=== PATIENT | female | born 1995 | race Caucasian/White ===

== ENCOUNTER 2021-11-13 08:36 | Inpatient (IN) | payer OTHER, SELFPAY ==
--- NOTE | ~2021-11-13 | FL_ITS ---
EXAMINATION: XR FLUOROSCOPY WITH IMAGES CLINICAL INFORMATION: Cystoscopy and stent. COMPARISON: CT scan of the abdomen and pelvis October 2021. TECHNIQUE: Fluoroscopy performed by Dr. Adair. Fluoroscopy time: 132 seconds DAP: 35.04 mGy-cm2 Images: 3 FINDINGS: Three images performed in the operating room and submitted for review. These demonstrate wire placement overlying the left collecting system with contrast injected noted along portions of the proximal ureter and proximal collecting system. FL/FL guidance in OR IMPRESSION: As above.
--- NOTE | ~2021-11-13 | CT_ITS ---
EXAMINATION: CT ABDOMEN AND PELVIS WITH CONTRAST CLINICAL INFORMATION: Right flank and lower quadrant pain COMPARISON: None TECHNIQUE: Multidetector volumetric images were obtained from the superior aspect of the liver through the pubic symphysis following administration 85 mL of Omnipaque 350 intravenous contrast. Sagittal and coronal reformatted images were obtained on the technologist's workstation. Oral contrast: Yes This CT examination was performed using dose optimization techniques as appropriate, variously including the following: *Automated exposure control *Adjustment of mA and/or kV according to patient size (this includes techniques or standardized protocols for targeted exams where dose is matched to indication/reason for exam; i.e. extremities or head) *Use of iterative reconstruction technique DLP: 493 mGy-cm FINDINGS: LUNG BASES: There is a small right pleural effusion. LIVER, GALLBLADDER, AND BILIARY TREE: The liver is normal in size, shape, and attenuation. No focal hepatic lesion or biliary ductal dilatation is present. The gallbladder is unremarkable with no evidence of radiopaque gallstones, gallbladder wall thickening, or obvious pericholecystic inflammatory changes. PANCREAS: Unremarkable. SPLEEN: Unremarkable. ADRENAL GLANDS: Unremarkable. KIDNEYS AND URETERS: There is right hydronephrosis from a 5 x 7 mm right proximal ureteral stone. There is cortical thinning or scarring in the lower pole of the right kidney. There is significant right perinephric fluid and fluid along the right posterior pararenal fascia. This may be related to obstruction and backflow of urine. Differential would include infection. Clinical correlation is recommended. There is a 5 mm stone in the lower pole of the left kidney. The left kidney is otherwise normal. BLADDER: Unremarkable. GASTROINTESTINAL TRACT: The small and large bowel are unremarkable. The appendix is unremarkable. ABDOMINAL WALL: Small umbilical hernia containing fat. LYMPH NODES: Normal. VASCULAR: Unremarkable. PELVIC VISCERA: Unremarkable. OSSEOUS STRUCTURES: Unremarkable. CT/CT abdomen pelvis w con IMPRESSION: Severe right hydronephrosis from a 5 x 7 mm right proximal ureteral stone. Significant right perinephric fluid and fluid along the right posterior pararenal fascia. This may be secondary to obstruction and backflow of urine. Differential would include infection. Clinical correlation recommended. 5 mm left lower pole renal stone. Small right pleural effusion. Fleischner guidelines were followed.
--- NOTE | ~2021-11-13 | XR_ITS ---
EXAMINATION: XR CHEST CLINICAL INFORMATION: Chest pain COMPARISON: None TECHNIQUE: 2 views of the chest were obtained. FINDINGS: No significant abnormality is noted involving the heart, lungs, mediastinum, bony thorax or soft tissues. XR/XR chest 2V IMPRESSION: Unremarkable examination.
--- NOTE | ~2021-11-13 | US_ITS ---
EXAMINATION: US RETROPERITONEAL LIMITED (RENAL ONLY) CLINICAL INFORMATION: Followup hydronephrosis. COMPARISON: CT scan of 11/13/2021. TECHNIQUE: Ultrasound evaluation of the kidneys. FINDINGS: RIGHT KIDNEY: 11.0 x 5.7 x 6.2 cm (SAG x AP x TRV). There has been marked improvement of previously noted hydronephrosis. There are regions of cortical thinning within the lower pole. Within the upper pole, there is a complex ill-defined mass measuring 2.5 x 2.4 x 3.3 cm in size in the region where previous cyst had been seen. LEFT KIDNEY: 10.4 x 6.0 x 5.4 cm (SAG x AP x TRV). There is mild fullness of the upper collecting system. Renal cortical thickness is normal. Within the lower pole, there is noted to be a nonobstructive 8 x 5 x 9 mm calculus. No suspicious mass identified. US/US renal BI IMPRESSION: Resolution of right upper collecting system marked hydronephrosis. Appearance of complex cyst upper pole of the right kidney. 9 mm left renal calculus which is nonobstructive.
[2021-11-13 08:40] VITALS: BP 131/49; PULSE 112; RESP 20; TEMP 37.1; O2SAT 99; BMI 31.4
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
--- NOTE | 2021-11-13 09:15 | PC.NURSE ---
Pt comes in from home with complaints of R flank pain with N/V since yesterday, denies urinary s/s at this time. States she is dehydrated and needs IV fluids. Pt is A&Ox4, LCA, NSR, abd soft, TTP in R quadrants, +BS x 4. Urine obtained and sent, awaiting MD correa, call coronado within reach. Will continue to monitor.
--- NOTE | 2021-11-13 09:28 | ECG_ITS ---
Test Reason : CP Blood Pressure : / mmHG Vent. Rate : 108 BPM Atrial Rate : 108 BPM P-R Int : 148 ms QRS Dur : 064 ms QT Int : 310 ms P-R-T Axes : 034 040 040 degrees QTc Int : 415 ms Sinus tachycardia Otherwise normal ECG No previous ECGs available Referred By: Netta Mccain Electronically Signed By:FOUZIA LAYTON MD
[2021-11-13 09:30] LABS: Appearance Urine HAZY; Color Urine YELLOW; Glucose Urine UA NEG (NEG); Leukocyte Esterase Urine 1+ (NEG); Nitrite Urine NEG (NEG); Specific Gravity - Urine >= 1.030 (1.005-1.025); UACC Culture Trigger YES; Urine Blood 3+ (NEG); Urine Ketones 40 MG/DL (NEG); Urine Protein 2+ MG/DL (NEG-TRACE)
[2021-11-13 09:31] LABS: UPreg QC Valid YES; Urine Pregnancy NEGATIVE (NEGATIVE)
[2021-11-13 09:43] LABS: Squamous Epithelial Cell Urine 3+ /LPF
[2021-11-13 09:44] LABS: Bacteria Urine 2+ /LPF; Mucus Urine 3+ /LPF
[2021-11-13] MEDS: ondansetron HCL 4 MG/2 ML VIAL IVPUSH (09:51)
[2021-11-13] MEDS: Morphine Sulfate 4 MG/ML CARTRIDGE IVPUSH ×2 (09:51→22:04)
[2021-11-13] MEDS: 0.9 % Sodium Chloride 1,000 ML 999 ML IV ×2 (09:52→12:05)
[2021-11-13 10:00] VITALS: BP 102/48; PULSE 101; RESP 16; O2SAT 100
[2021-11-13 10:00] LABS: Basophils Percent Auto 0.1 % (0-2); Hematocrit 40.5 % (37.0-47.0); Hemoglobin 12.9 g/dl (12.0-16.0); Imm Gran Abs Auto 0.12 X10*3/uL (0.00-0.03); Imm Gran Pct Auto 0.5 % (0.0-0.4); Lymphocytes Percent Auto 4.5 % (20-40); MANUAL DIFF FLAG SCAN; Mean Corpuscular HGB Conc 31.9 g/dl (31.0-35.0); Mean Corpuscular Hemoglobin 26.4 pg (27.0-33.0); Mean Corpuscular Volume 82.8 fL (80.0-98.0); Mean Platelet Volume 11.8 fL (9.4-12.3); Monocytes Absolute Auto 0.7 X10*3/uL (0.1-1.2); Monocytes Percent Auto 3.2 % (2-11); Neutrophils Absolute Auto 20.6 x10*3/uL (2.0-8.3); Neutrophils Percent Auto 91.7 % (45-73); Platelet Count 195 X10*3/uL (160-400); Red Blood Count 4.89 X10*6/uL (4.20-5.50); Red Cell Distribution Width 13.7 % (11.0-16.0); SCAN SMEAR FLAG 1; White Blood Count 22.5 X10*3/uL (4.8-10.8)
[2021-11-13 10:17] LABS: Alanine Aminotransferase 25 U/L (0-31); Alkaline Phosphatase 64 U/L (39-117); Anion Gap 14 (12-20); Aspartate Amino Transferase 25 U/L (5-31); Bilirubin Total 0.8 mg/dL (0.0-1.0); Blood Urea Nitrogen 14 mg/dL (9-16); Calcium 8.9 mg/dL (8.4-10.2); Carbon Dioxide 23 mmol/L (22-29); Chloride 101 mmol/L (96-108); Creatinine Clr Calc Pharmacy 52.4; Estimated Glomerular Filt Rate 51; Glucose Random 128 mg/dL (60-115); Lipase 7 U/L (8-78); Potassium 4.1 mmol/L (3.3-5.1); Sodium 134 mmol/L (135-145); Total Protein 7.2 g/dL (6.5-8.0)
[2021-11-13 10:23] LABS: Troponin-I High Sensitivity < 3.5 ng/L (<3.5-17.0)
[2021-11-13 10:24] LABS: COVID-19 Test Negative (Negative); IDNOW Serial# 16C4AD1C
[2021-11-13 10:31] LABS: SLIDE REVIEW VERIFIED
[2021-11-13] MEDS: Ketorolac Tromethamine 30 MG/ML VIAL IVPUSH (10:42)
[2021-11-13] MEDS: iohexoL 350 MG/ML 100 ML INFUS..BTL IV (11:30)
[2021-11-13 12:00] VITALS: BP 109/68; PULSE 103; RESP 16; O2SAT 99
[2021-11-13] MEDS: Acetaminophen 325 MG TABLET 975 MG PO (12:03)
[2021-11-13] MEDS: cefTRIAXone sodium 2 GM in 0.9 % Sodium Chloride 50 ML IV (12:54)
[2021-11-13 13:24] LABS: Lactic Acid 1.2 mmol/L (0.5-2.0)
--- NOTE | 2021-11-13 14:13 | PM.IMHP ---
History of Present Illness Date of Service: 11/13/21 Chief Complaint: right flank pain 26-year-old female presents with what she describes as 3 days of intermittent worsening right flank pain. She states initially the pain was intermittent and sharp but has continued to get worse over the last 3 days. She states yesterday afternoon last night the pain was accompanied by waves of nausea and vomiting. She subjectively complains of chills. Review of Systems Review of Systems: Denies chest pain Denies shortness of breath Denies diarrhea; admits to nausea vomiting Admits to subjective fevers Denies dysuric symptoms PMFSH Medical History No known health problems Social History Advance Directives: No Advance Directives Information Provided: No Patient : No Meds Allergies Allergy/AdvReac Type Severity Reaction Status Date / Time No Known Allergies Allergy Unverified 04/09/20 16:33 [No Known Allergies*] Active Medications: Current Medications Acetaminophen (Acetaminophen 325 Mg Tablet) 650 mg PO Q6H PRN PRN Reason: Pain, Mild (Pain Scale 1-3) Sodium Chloride (Ns) 1,000 mls @ 100 mls/hr IVCONT .Q10H GIDEON Piperacillin Sod/Tazobactam (Sod 4.5 gm/ Sodium Chloride) 100 mls @ 200 mls/hr IV Q6H GIDEON Morphine Sulfate (Morphine Sulfate 4 Mg/Ml Cartridge) 4 mg IVPUSH Q4H PRN; Protocol PRN Reason: Pain, Severe (Pain Scale 7-10) Oxycodone HCl (Oxycodone Hcl Immed Release 5 Mg Tablet) 5 mg PO Q4H PRN PRN Reason: Pain, Moderate (Pain Scale 4-6 Pharmacy Consult (Consult Rx Perform Med Rec) 1 each MISCELLANE ONCE PRN PRN Reason: Consult order Sodium Chloride (0.9 % Sodium Chloride Flush 3 Ml Syringe) 3 ml IVFLUSH QSHIFT GIDEON Home Medications Medication Instructions Recorded Confirmed Last Taken Type No Known Home Meds 11/13/21 11/13/21 Unknown History Physical Exam Vital Signs and Narrative: Vital Signs: Last Vital Signs Temp 98.7 F 11/13/21 08:40 Pulse 103 H 11/13/21 12:00 Resp 16 11/13/21 12:00 BP 109/68 11/13/21 12:00 Pulse Ox 99 11/13/21 12:00 BMI result Body Mass Index 31.4 Const: Other: Awake alert oriented x3 no acute distress Resp: Other: Clear to auscultation bilaterally no rales rhonchi wheezes Cardio: Other: No S4; positive S1-S2; no S3 murmurs rubs or gallops GI: Other: Soft nontender nondistended with normoactive bowel sounds Back/Spine/Pelvis: Other: Right CVA tenderness Neuro: Other: Cranial nerves 2-12 were grossly intact as tested. Motor is 5/5 bilaterally. Sensations intact. Cognition appropriate Extrem: Other: No edema bilaterally Results Labs CBC and Chem 7: 11/13/21 09:50 11/13/21 09:50 Labs: Laboratory Results - last 24 hr 11/13/21 11/13/21 11/13/21 09:10 09:10 09:50 MCV 82.8 MCH 26.4 L MCHC 31.9 RDW 13.7 Plt Count 195 MPV 11.8 Immature Gran % (Auto) 0.5 H Neut % (Auto) 91.7 H Lymph % (Auto) 4.5 L [place] % (Auto) 3.2 Eos % (Auto) 0.0 Baso % (Auto) 0.1 Lymph # (Auto) 1.0 L [place] # (Auto) 0.7 Eos # (Auto) 0.0 Baso # (Auto) 0.0 Abs Immat Gran (auto) 0.12 H Absolute Neuts (auto) 20.6 H Absolute Nucleated RBC 0.000 Nucleated RBC % (auto) 0.0 Smear Tech's Comments VERIFIED Anion Gap Estim Creat Clear Calc Estimated GFR Random Glucose Lactic Acid Calcium Total Bilirubin AST ALT Alkaline Phosphatase Troponin I High Sens Total Protein Albumin Lipase Urine Color YELLOW Urine Appearance HAZY Urine pH 6.0 Ur Specific [place] >= 1.030 H Urine Protein 2+ H Urine Glucose (UA) NEG Urine Ketones 40 Urine Blood 3+ H Urine Nitrite NEG Ur Leukocyte Esterase 1+ H Urine RBC 5-9 H Urine WBC 15-29 H Ur Squamous Epith Cells 3+ Urine Bacteria 2+ Urine Mucus 3+ Urine Test NEGATIVE COVID-19 ([facility]US) COVID-19 Clin Com 11/13/21 11/13/21 11/13/21 09:50 09:50 09:50 MCV MCH MCHC RDW Plt Count MPV Immature Gran % (Auto) Neut % (Auto) Lymph % (Auto) [place] % (Auto) Eos % (Auto) Baso % (Auto) Lymph # (Auto) [place] # (Auto) Eos # (Auto) Baso # (Auto) Abs Immat Gran (auto) Absolute Neuts (auto) Absolute Nucleated RBC Nucleated RBC % (auto) Smear Tech's Comments Anion Gap 14 Estim Creat Clear Calc 52.4 Estimated GFR 51 Random Glucose 128 H Lactic Acid Calcium 8.9 Total Bilirubin 0.8 AST 25 ALT 25 Alkaline Phosphatase 64 Troponin I High Sens < 3.5 Total Protein 7.2 Albumin 4.0 Lipase 7 L Urine Color Urine Appearance Urine pH Ur Specific [place] Urine Protein Urine Glucose (UA) Urine Ketones Urine Blood Urine Nitrite Ur Leukocyte Esterase Urine RBC Urine WBC Ur Squamous Epith Cells Urine Bacteria Urine Mucus Urine Test COVID-19 ([facility]ESUS) Negative COVID-19 Clin Com See Note 11/13/21 12:48 MCV MCH MCHC RDW Plt Count MPV Immature Gran % (Auto) Neut % (Auto) Lymph % (Auto) [place] % (Auto) Eos % (Auto) Baso % (Auto) Lymph # (Auto) [place] # (Auto) Eos # (Auto) Baso # (Auto) Abs Immat Gran (auto) Absolute Neuts (auto) Absolute Nucleated RBC Nucleated RBC % (auto) Smear Tech's Comments Anion Gap Estim Creat Clear Calc Estimated GFR Random Glucose Lactic Acid 1.2 Calcium Total Bilirubin AST ALT Alkaline Phosphatase Troponin I High Sens Total Protein Albumin Lipase Urine Color Urine Appearance Urine pH Ur Specific [place] Urine Protein Urine Glucose (UA) Urine Ketones Urine Blood Urine Nitrite Ur Leukocyte Esterase Urine RBC Urine WBC Ur Squamous Epith Cells Urine Bacteria Urine Mucus Urine Test COVID-19 ([facility]ESUS) COVID-19 Clin Com Imaging Radiologist's Impressions: Impressions Chest X-Ray 11/13/21 10:35 IMPRESSION: Unremarkable examination. Abdomen/Pelvis CT 11/13/21 11:34 IMPRESSION: Severe right hydronephrosis from a 5 x 7 mm right proximal ureteral stone. Significant right perinephric fluid and fluid along the right posterior pararenal fascia. This may be secondary to obstruction and backflow of urine. Differential would include infection. Clinical correlation recommended. 5 mm left lower pole renal stone. Small right pleural effusion. Fleischner guidelines were followed. Assessment and Plan (1) Urinary tract obstruction due to kidney stone: Status: Acute (2) Pyelonephritis: Status: Acute Plan 26-year-old female with 3 days of right flank pain accompanied by nausea and vomiting subjective fevers. She denies dysuric symptoms. In the emergency room, CT scan demonstrates severe right hydronephrosis from a 5 x 7 mm right proximal ureteral stone. There is significant right hoang nephric fluid and stranding. Case was discussed by Urology who will see in the a.m.. 1. Right hydronephrosis secondary to right proximal ureteral stone -admit GM after; IV fluids -pain management with morphine and oxycodone as needed -empiric Zosyn pending cultures -urology will see in a.m. for likely stent. .. Will keep NPO after midnight Emilie anaya Full code Patient will require 1-2 midnights going forward for treatment of likely pyelonephritis and ureteral stenting by Urology. This cannot be accomplished at a less acute facility Quality Stroke Does the patient have a stroke diagnosis?: No VTE Prior VTE?: No VTE Risk Level:: Medical - moderate - high VTE Device Contraindication: N/A - Device Ordered VTE Drug Contraindication: Treatment Not Indicated
--- NOTE | 2021-11-13 14:17 | PHA.MEDREC ---
Pharmacy Consult ? Medication Reconciliation Pharmacy has completed the medication reconciliation. spoke with patient in the ED.
[2021-11-13] MEDS: 0.9 % Sodium Chloride 1,000 ML 100 ML IVCONT (14:34)
[2021-11-13] MEDS: Piperacillin Sodium/Tazobactam 4.5 GM in 0.9 % Sodium Chloride 100 ML IV ×2 (14:34→19:49)
[2021-11-13 17:31] VITALS: BP 99/60; PULSE 79; RESP 18; TEMP 36.7; O2SAT 100
[2021-11-13 17:43] VITALS: BMI 31.6
--- NOTE | 2021-11-13 18:04 | PC.NURSE ---
PATIENT REPORTED SPOTTING OF BLOOD WITH URINATION. NOTIFIED PRIMARY RN.
[2021-11-14] VITALS (13 sets, daily range): BP systolic 90–131; BP diastolic 43–84; PULSE 73–100; RESP 15–20; TEMP 36.2–37.4; O2SAT 96–100
[2021-11-14] MEDS: Acetaminophen 325 MG TABLET 650 MG PO (00:46)
[2021-11-14] MEDS: oxyCODONE HCl Immed Release 5 MG TABLET PO (00:46)
[2021-11-14] MEDS: 0.9 % Sodium Chloride 1,000 ML 100 ML IVCONT ×4 (00:46→22:48)
[2021-11-14] MEDS: Piperacillin Sodium/Tazobactam 4.5 GM in 0.9 % Sodium Chloride 100 ML IV ×4 (00:47→19:46)
--- NOTE | 2021-11-14 07:48 | P.BOP_ITS ---
Brief Operative Note Date of Service: 11/14/21 Pre-op diagnosis: right ureteral stone with hydro Post-op diagnosis: same Procedure: cystoscopy, right rerograde, ureterocopy, stent pt taken to operating room, time out done. pt underwent cystoscopy with right retrograde showing proximal obstructing ureteral stone. stone was knocked back into renal pelvis, retrogrtade showed significnt narrowing , and torturiuos ureter, attempt at dilation meet significant resistance, since it took everal attempts tp get gluide wire in renal pevis opted to stent pt allow for dilation of ureter and resolution of infection, stent was then placed with good position on floroscopy and cystoscopy pt tolerated the procedure well , there were no complications Implants: double j stent 6 fr x 24 cm Surgeon: Leonardo Adair III, MD Anesthesia: GLMA Was an Emergency Services Professional used for this Procedure?: No Estimated blood loss (mL): 0 Condition: stable Disposition: PACU
--- NOTE | 2021-11-14 08:07 | P.CONAN_ITS ---
[facility] Active Problems Active Problems: All Active Problems (Updated 11/13/21 @ 14:17 by Bob Palomares DO) Pyelonephritis (Acute) Urinary tract obstruction due to kidney stone (Acute) UTI (urinary tract infection) (Acute) Past Medical History Medical History No known health problems Family History Family history of problems with anesthesia: No Surgical History History of Problems with Anesthesia: No Social History Social History Household Members: Children Housing: Apartment Do you presently have visiting nurse or other home services: No Patient Tobacco Use Status: Never used Tobacco Meds Allergies Allergy/AdvReac Type Severity Reaction Status Date / Time No Known Allergies Allergy Unverified 04/09/20 16:33 [No Known Allergies*] Active Medications: Current Medications Acetaminophen (Acetaminophen 325 Mg Tablet) 650 mg PO Q6H PRN PRN Reason: Pain, Mild (Pain Scale 1-3) Last Admin: 11/14/21 00:46 Dose: 650 mg Documented by: Sodium Chloride (Ns) 1,000 mls @ 100 mls/hr IVCONT .Q10H [facility] Last Admin: 11/14/21 00:46 Dose: 100 mls/hr Documented by: Piperacillin Sod/Tazobactam (Sod 4.5 gm/ Sodium Chloride) 100 mls @ 200 mls/hr IV Q6H [facility] Last Admin: 11/14/21 07:35 Dose: 200 mls/hr Documented by: Morphine Sulfate (Morphine Sulfate 4 Mg/Ml Cartridge) 4 mg IVPUSH Q4H PRN; Protocol PRN Reason: Pain, Severe (Pain Scale 7-10) Last Admin: 11/13/21 22:04 Dose: 4 mg Documented by: Oxycodone HCl (Oxycodone Hcl Immed Release 5 Mg Tablet) 5 mg PO Q4H PRN PRN Reason: Pain, Moderate (Pain Scale 4-6 Last Admin: 11/14/21 00:46 Dose: 5 mg Documented by: Pharmacy Consult (Consult Rx Perform Med Rec) 1 each MISCELLANE ONCE PRN PRN Reason: Consult order Sodium Chloride (0.9 % Sodium Chloride Flush 3 Ml Syringe) 3 ml IVFLUSH QSHIFT [facility] Last Admin: 11/14/21 07:32 Dose: Not Given Documented by: Home Medications Medication Instructions Recorded Confirmed Last Taken Type No Known Home Meds 11/13/21 11/13/21 Unknown History Exam Exam Date and Time: November 14, 2021 08 Height,Weight and Vital Signs: Height 4 ft 9 in Weight 66.2 kg Last Vital Signs Temp 98.3 F 11/14/21 03:30 Pulse 85 11/14/21 03:30 Resp 18 11/14/21 03:30 BP 91/50 L 11/14/21 03:30 Pulse Ox 98 11/14/21 03:30 Pertinent Lab Results Pertinent Lab Results: Laboratory Tests 11/13/21 11/13/21 11/13/21 09:10 09:10 09:50 WBC 22.5 H RBC 4.89 Hgb 12.9 Hct 40.5 MCV 82.8 MCH 26.4 L MCHC 31.9 RDW 13.7 Plt Count 195 MPV 11.8 Immature Gran % (Auto) 0.5 H Neut % (Auto) 91.7 H Lymph % (Auto) 4.5 L [place] % (Auto) 3.2 Eos % (Auto) 0.0 Baso % (Auto) 0.1 Lymph # (Auto) 1.0 L [place] # (Auto) 0.7 Eos # (Auto) 0.0 Baso # (Auto) 0.0 Abs Immat Gran (auto) 0.12 H Absolute Neuts (auto) 20.6 H Absolute Nucleated RBC 0.000 Nucleated RBC % (auto) 0.0 Smear Tech's Comments VERIFIED Sodium Potassium Chloride Carbon Dioxide Anion Gap BUN Creatinine Estim Creat Clear Calc Estimated GFR Random Glucose Lactic Acid Calcium Total Bilirubin AST ALT Alkaline Phosphatase Troponin I High Sens Total Protein Albumin Lipase Urine Color YELLOW Urine Appearance HAZY Urine pH 6.0 Ur Specific [place] >= 1.030 H Urine Protein 2+ H Urine Glucose (UA) NEG Urine Ketones 40 Urine Blood 3+ H Urine Nitrite NEG Ur Leukocyte Esterase 1+ H Urine RBC 5-9 H Urine WBC 15-29 H Ur Squamous Epith Cells 3+ Urine Bacteria 2+ Urine Mucus 3+ Urine Test NEGATIVE COVID-19 (JESUS) COVID-19 Clin Com 11/13/21 11/13/21 11/13/21 09:50 09:50 09:50 WBC RBC Hgb Hct MCV MCH MCHC RDW Plt Count MPV Immature Gran % (Auto) Neut % (Auto) Lymph % (Auto) [place] % (Auto) Eos % (Auto) Baso % (Auto) Lymph # (Auto) [place] # (Auto) Eos # (Auto) Baso # (Auto) Abs Immat Gran (auto) Absolute Neuts (auto) Absolute Nucleated RBC Nucleated RBC % (auto) Smear Tech's Comments Sodium 134 L Potassium 4.1 Chloride 101 Carbon Dioxide 23 Anion Gap 14 BUN 14 Creatinine 1.27 Estim Creat Clear Calc 52.4 Estimated GFR 51 Random Glucose 128 H Lactic Acid Calcium 8.9 Total Bilirubin 0.8 AST 25 ALT 25 Alkaline Phosphatase 64 Troponin I High Sens < 3.5 Total Protein 7.2 Albumin 4.0 Lipase 7 L Urine Color Urine Appearance Urine pH Ur Specific [place] Urine Protein Urine Glucose (UA) Urine Ketones Urine Blood Urine Nitrite Ur Leukocyte Esterase Urine RBC Urine WBC Ur Squamous Epith Cells Urine Bacteria Urine Mucus Urine Test COVID-19 (JESUS) Negative COVID-19 [employer] Com See Note 11/13/21 12:48 WBC RBC Hgb Hct MCV MCH MCHC RDW Plt Count MPV Immature Gran % (Auto) Neut % (Auto) Lymph % (Auto) [place] % (Auto) Eos % (Auto) Baso % (Auto) Lymph # (Auto) [place] # (Auto) Eos # (Auto) Baso # (Auto) Abs Immat Gran (auto) Absolute Neuts (auto) Absolute Nucleated RBC Nucleated RBC % (auto) Smear Tech's Comments Sodium Potassium Chloride Carbon Dioxide Anion Gap BUN Creatinine Estim Creat Clear Calc Estimated GFR Random Glucose Lactic Acid 1.2 Calcium Total Bilirubin AST ALT Alkaline Phosphatase Troponin I High Sens Total Protein Albumin Lipase Urine Color Urine Appearance Urine pH Ur Specific [place] Urine Protein Urine Glucose (UA) Urine Ketones Urine Blood Urine Nitrite Ur Leukocyte Esterase Urine RBC Urine WBC Ur Squamous Epith Cells Urine Bacteria Urine Mucus Urine Test COVID-19 (JESUS) COVID-19 [employer] Com Airway Mallampati Class: II TM Dist: >3cm Neck ROM: Full Assessment and Plan Assessment Anesthesia Assessment: Anesthesia Plan Discussed and Chart Reviewed Final Anesthetic Review Family History of Problems with Anesthesia: No History of Problems with Anesthesia: No NPO: Yes ASA Class: II and Emergency Final Preanesthetic Review: No Changes in Pt Med Stat, Meds/Allgs Chart Reviewed, Consent Obtained/Reviewed and Anes Risks/Benef Reviewed Patient Risk: Low Procedure Risk: Low Anesthetic Plan Anesthetic Plan: GA Disposition: Standard PACU
[2021-11-14 08:35] LABS: MANUAL DIFF FLAG NO
[2021-11-14 08:37] LABS: Basophils Percent Auto 0.1 % (0-2); Eosinophils Absolute Auto 0.1 X10*3/uL (0.0-0.4); Eosinophils Percent Auto 0.6 % (0-4); Hematocrit 34.1 % (37.0-47.0); Hemoglobin 10.8 g/dl (12.0-16.0); Imm Gran Abs Auto 0.08 X10*3/uL (0.00-0.03); Imm Gran Pct Auto 0.5 % (0.0-0.4); Lymphocytes Percent Auto 12.8 % (20-40); Mean Corpuscular HGB Conc 31.7 g/dl (31.0-35.0); Mean Corpuscular Hemoglobin 26.6 pg (27.0-33.0); Mean Platelet Volume 12.1 fL (9.4-12.3); Monocytes Absolute Auto 0.6 X10*3/uL (0.1-1.2); Monocytes Percent Auto 3.5 % (2-11); Neutrophils Absolute Auto 12.8 x10*3/uL (2.0-8.3); Neutrophils Percent Auto 82.5 % (45-73); Platelet Count 165 X10*3/uL (160-400); Red Blood Count 4.06 X10*6/uL (4.20-5.50); Red Cell Distribution Width 13.6 % (11.0-16.0); White Blood Count 15.6 X10*3/uL (4.8-10.8)
--- NOTE | 2021-11-14 08:51 | MHC.CM.PN ---
Patient lives at home w/two children (young). She does not drive, but rather takes a bus for transportation needs. Patient previously functionally independent. No prior VNA services, etc. Patient presently unavailable; interview conducted w/contact listed in chart (mother, Roxana). Roxana caring for patient's children currently. Upon D/C readiness, transport TBD [facility] [place] transport vs friend to pick pack worker). Patient took lyft to [facility] for admit. CM to follow.
[2021-11-14 09:09] LABS: Alanine Aminotransferase 15 U/L (0-31); Alkaline Phosphatase 54 U/L (39-117); Anion Gap 13 (12-20); Aspartate Amino Transferase 15 U/L (5-31); Bilirubin Total 1.2 mg/dL (0.0-1.0); Blood Urea Nitrogen 13 mg/dL (9-16); Carbon Dioxide 22 mmol/L (22-29); Chloride 107 mmol/L (96-108); Creatinine Clr Calc Pharmacy 84.5; Estimated Glomerular Filt Rate > 60; Glucose Random 80 mg/dL (60-115); Potassium 4.1 mmol/L (3.3-5.1); Sodium 138 mmol/L (135-145)
[2021-11-14 09:43] LABS: Albumin Level 3.1 g/dL (3.5-5.0); Total Protein 5.5 g/dL (6.5-8.0)
--- NOTE | 2021-11-14 10:20 | PC.NURSE ---
late entry. pt had earrings in upon leaving pacu
[2021-11-14] MEDS: Morphine Sulfate 4 MG/ML CARTRIDGE IVPUSH ×2 (10:43→16:59)
--- NOTE | 2021-11-14 14:25 | P.PNIM_ITS ---
Subjective Subjective Date of Service: 11/14/21 Interval History: Underwent stenting of right ureter today without issue. Pain well controlled postoperatively Review of Systems Denies chest pain Denies shortness of breath Denies nausea vomiting diarrhea Denies fever chills Physical Exam Vital Signs: Vital Signs: Last Vital Signs Temp 97.3 F 11/14/21 11:00 Pulse 88 11/14/21 11:00 Resp 17 11/14/21 11:00 BP 110/59 L 11/14/21 11:00 Pulse Ox 96 11/14/21 11:00 BMI result Body Mass Index 31.6 Const: Other: Awake alert oriented x3 no acute distress Resp: Other: Clear to auscultation bilaterally no rales rhonchi wheezes Cardio: Other: No S4; positive S1-S2; no S3 murmurs rubs or gallops GI: Other: Soft nontender nondistended with normoactive bowel sounds Back/Spine/Pelvis: Other: Right CVA tenderness Neuro: Other: Cranial nerves 2-12 were grossly intact as tested. Motor is 5/5 bilaterally. Sensations intact. Cognition appropriate Extrem: Other: No edema bilaterally Objective Data Active Medications Acetaminophen (Acetaminophen 325 Mg Tablet) 650 mg PO Q6H PRN PRN Reason: Pain, Mild (Pain Scale 1-3) Last Admin: 11/14/21 00:46 Dose: 650 mg Documented by: ZEESHAN Fentanyl (Fentanyl Citrate/Pf 100 Mcg/2 Ml Vial) 50 mcg IVPUSH Q5M PRN; Protocol PRN Reason: Pain, Severe (Pain Scale 7-10) Sodium Chloride (Ns) 1,000 mls @ 100 mls/hr IVCONT .Q10H [facility] Last Admin: 11/14/21 14:14 Dose: 100 mls/hr Documented by: ASHLEY Piperacillin Sod/Tazobactam (Sod 4.5 gm/ Sodium Chloride) 100 mls @ 200 mls/hr IV Q6H [facility] Last Admin: 11/14/21 14:13 Dose: 200 mls/hr Documented by: ASHLEY Morphine Sulfate (Morphine Sulfate 4 Mg/Ml Cartridge) 4 mg IVPUSH Q4H PRN; Protocol PRN Reason: Pain, Severe (Pain Scale 7-10) Last Admin: 11/14/21 10:43 Dose: 4 mg Documented by: ASHLEY Ondansetron HCl (Ondansetron Hcl 4 Mg/2 Ml Vial) 4 mg IVPUSH ONCE PRN PRN Reason: Nausea and Vomiting Oxycodone HCl (Oxycodone Hcl Immed Release 5 Mg Tablet) 5 mg PO Q4H PRN PRN Reason: Pain, Moderate (Pain Scale 4-6 Last Admin: 11/14/21 00:46 Dose: 5 mg Documented by: ZEESHAN Oxycodone HCl (Oxycodone Hcl Immed Release 5 Mg Tablet) 5 mg PO ONCE PRN PRN Reason: Pain, Severe (Pain Scale 7-10) Pharmacy Consult (Consult Rx Perform Med Rec) 1 each MISCELLANE ONCE PRN PRN Reason: Consult order Sodium Chloride (0.9 % Sodium Chloride Flush 3 Ml Syringe) 3 ml IVFLUSH QSHIFT [facility] Last Admin: 11/14/21 07:32 Dose: Not Given Documented by: ASHLEY Non-Admin Reason: IV Running Labs CBC & Chem 7: 11/14/21 08:03 11/14/21 08:03 Labs: Laboratory Results - last 24 hr 11/14/21 11/14/21 08:03 08:03 MCV 84.0 MCH 26.6 L MCHC 31.7 RDW 13.6 Plt Count 165 MPV 12.1 Immature Gran % (Auto) 0.5 H Neut % (Auto) 82.5 H Lymph % (Auto) 12.8 L [place] % (Auto) 3.5 Eos % (Auto) 0.6 Baso % (Auto) 0.1 Lymph # (Auto) 2.0 [place] # (Auto) 0.6 Eos # (Auto) 0.1 Baso # (Auto) 0.0 Abs Immat Gran (auto) 0.08 H Absolute Neuts (auto) 12.8 H Absolute Nucleated RBC 0.000 Nucleated RBC % (auto) 0.0 Anion Gap 13 Estim Creat Clear Calc 84.5 Estimated GFR > 60 Random Glucose 80 Calcium 8.0 L D Total Bilirubin 1.2 H AST 15 ALT 15 Alkaline Phosphatase 54 Total Protein 5.5 L D Albumin 3.1 L D Microbiology Microbiology Results: Microbiology 11/13/21 00:00 Urine Culture - Final Urine clean catch - Urine nichols top Assessment and Plan (1) Urinary tract obstruction due to kidney stone: Status: Acute Plan 26-year-old female with 3 days of right flank pain accompanied by nausea and vomiting subjective fevers. She denies dysuric symptoms. In the emergency room, CT scan demonstrates severe right hydronephrosis from a 5 x 7 mm right proximal ureteral stone. There is significant right hoang nephric fluid and stranding. Case was discussed by Urology who will see in the a.m.. 1. Right hydronephrosis secondary to right proximal ureteral stone -right ureteral stenting today. . . Uneventful postop. -pain management with morphine and oxycodone as needed -empiric Zosyn pending cultures -likely DC in a.m. Emilie anaya Full code Patient will require treatment of likely pyelonephritis and to ensure white count is decreasing Quality Stroke Does the patient have a stroke diagnosis?: No VTE Prior VTE?: No VTE Risk Level:: Medical - moderate - high VTE Device Contraindication: N/A - Device Ordered VTE Drug Contraindication: Treatment Not Indicated
[2021-11-15] MEDS: Piperacillin Sodium/Tazobactam 4.5 GM in 0.9 % Sodium Chloride 100 ML IV ×4 (01:44→20:59)
[2021-11-15] MEDS: Acetaminophen 325 MG TABLET 650 MG PO ×2 (01:44→07:45)
[2021-11-15] MEDS: oxyCODONE HCl Immed Release 5 MG TABLET PO ×2 (01:45→07:46)
[2021-11-15 05:37] LABS: MANUAL DIFF FLAG NO
[2021-11-15 05:42] LABS: Basophils Percent Auto 0.1 % (0-2); Eosinophils Percent Auto 0.1 % (0-4); Hemoglobin 10.4 g/dl (12.0-16.0); Imm Gran Abs Auto 0.17 X10*3/uL (0.00-0.03); Imm Gran Pct Auto 1.1 % (0.0-0.4); Lymphocytes Percent Auto 12.1 % (20-40); Mean Corpuscular HGB Conc 31.5 g/dl (31.0-35.0); Mean Corpuscular Hemoglobin 26.2 pg (27.0-33.0); Mean Corpuscular Volume 83.1 fL (80.0-98.0); Mean Platelet Volume 11.8 fL (9.4-12.3); Monocytes Absolute Auto 0.8 X10*3/uL (0.1-1.2); Monocytes Percent Auto 4.9 % (2-11); Neutrophils Absolute Auto 13.2 x10*3/uL (2.0-8.3); Neutrophils Percent Auto 81.7 % (45-73); Platelet Count 206 X10*3/uL (160-400); Red Blood Count 3.97 X10*6/uL (4.20-5.50); Red Cell Distribution Width 13.7 % (11.0-16.0); White Blood Count 16.1 X10*3/uL (4.8-10.8)
[2021-11-15 06:02] LABS: Alanine Aminotransferase 17 U/L (0-31); Alkaline Phosphatase 53 U/L (39-117); Anion Gap 11 (12-20); Aspartate Amino Transferase 17 U/L (5-31); Bilirubin Total 0.7 mg/dL (0.0-1.0); Blood Urea Nitrogen 13 mg/dL (9-16); Carbon Dioxide 22 mmol/L (22-29); Chloride 109 mmol/L (96-108); Estimated Glomerular Filt Rate > 60; Glucose Fasting 118 mg/dL (60-99); Sodium 138 mmol/L (135-145); Total Protein 5.4 g/dL (6.5-8.0)
[2021-11-15 07:30] VITALS: BP 101/46; PULSE 72; RESP 18; TEMP 36.5; O2SAT 98
[2021-11-15] MEDS: 0.9 % Sodium Chloride 1,000 ML 100 ML IVCONT ×2 (07:47→21:50)
[2021-11-15 07:50] VITALS: O2SAT 97
--- NOTE | 2021-11-15 09:08 | P.PNIM_ITS ---
Subjective Subjective Date of Service: 11/15/21 Interval History: Much more discomfort this a.m.; utilizing pain medicine as ordered. White count remains 16,000 Review of Systems Denies chest pain Denies shortness of breath Denies nausea vomiting diarrhea Denies fever chills Physical Exam Vital Signs: Vital Signs: Last Vital Signs Temp 97.7 F 11/15/21 07:30 Pulse 72 11/15/21 07:30 Resp 18 11/15/21 07:30 BP 101/46 L 11/15/21 07:30 Pulse Ox 97 11/15/21 07:50 BMI result Body Mass Index 31.6 Const: Other: Awake alert oriented x3 no acute distress Resp: Other: Clear to auscultation bilaterally no rales rhonchi wheezes Cardio: Other: No S4; positive S1-S2; no S3 murmurs rubs or gallops GI: Other: Soft nontender nondistended with normoactive bowel sounds Back/Spine/Pelvis: Other: Right CVA tenderness Neuro: Other: Cranial nerves 2-12 were grossly intact as tested. Motor is 5/5 bilaterally. Sensations intact. Cognition appropriate Extrem: Other: No edema bilaterally Objective Data Active Medications Acetaminophen (Acetaminophen 325 Mg Tablet) 650 mg PO Q6H PRN PRN Reason: Pain, Mild (Pain Scale 1-3) Last Admin: 11/15/21 07:45 Dose: 650 mg Documented by: ASHLEY Fentanyl (Fentanyl Citrate/Pf 100 Mcg/2 Ml Vial) 50 mcg IVPUSH Q5M PRN; Protocol PRN Reason: Pain, Severe (Pain Scale 7-10) Sodium Chloride (Ns) 1,000 mls @ 100 mls/hr IVCONT .Q10H [facility] Last Admin: 11/15/21 07:47 Dose: 100 mls/hr Documented by: ASHLEY Piperacillin Sod/Tazobactam (Sod 4.5 gm/ Sodium Chloride) 100 mls @ 200 mls/hr IV Q6H [facility] Last Infusion: 11/15/21 08:18 Dose: 0 mls/hr Documented by: ASHLEY Morphine Sulfate (Morphine Sulfate 4 Mg/Ml Cartridge) 4 mg IVPUSH Q4H PRN; Protocol PRN Reason: Pain, Severe (Pain Scale 7-10) Last Admin: 11/14/21 16:59 Dose: 4 mg Documented by: ASHLEY Ondansetron HCl (Ondansetron Hcl 4 Mg/2 Ml Vial) 4 mg IVPUSH ONCE PRN PRN Reason: Nausea and Vomiting Oxycodone HCl (Oxycodone Hcl Immed Release 5 Mg Tablet) 5 mg PO Q4H PRN PRN Reason: Pain, Moderate (Pain Scale 4-6 Last Admin: 11/15/21 07:46 Dose: 5 mg Documented by: ASHLEY Oxycodone HCl (Oxycodone Hcl Immed Release 5 Mg Tablet) 5 mg PO ONCE PRN PRN Reason: Pain, Severe (Pain Scale 7-10) Pharmacy Consult (Consult Rx Perform Med Rec) 1 each MISCELLANE ONCE PRN PRN Reason: Consult order Sodium Chloride (0.9 % Sodium Chloride Flush 3 Ml Syringe) 3 ml IVFLUSH QSHIFT [facility] Last Admin: 11/15/21 07:21 Dose: Not Given Documented by: ASHLEY Non-Admin Reason: IV Running Labs CBC & Chem 7: 11/15/21 05:32 11/15/21 05:32 Labs: Laboratory Results - last 24 hr 11/14/21 11/15/21 11/15/21 08:03 05:32 05:32 MCV 83.1 MCH 26.2 L MCHC 31.5 RDW 13.7 Plt Count 206 MPV 11.8 Immature Gran % (Auto) 1.1 H Neut % (Auto) 81.7 H Lymph % (Auto) 12.1 L [place] % (Auto) 4.9 Eos % (Auto) 0.1 Baso % (Auto) 0.1 Lymph # (Auto) 2.0 [place] # (Auto) 0.8 Eos # (Auto) 0.0 Baso # (Auto) 0.0 Abs Immat Gran (auto) 0.17 H Absolute Neuts (auto) 13.2 H Absolute Nucleated RBC 0.000 Nucleated RBC % (auto) 0.0 Anion Gap 13 11 L Estim Creat Clear Calc 84.5 89.0 Estimated GFR > 60 > 60 Random Glucose 80 Fasting Glucose 118 H Calcium 8.0 L D 8.0 L Total Bilirubin 1.2 H 0.7 AST 15 17 ALT 15 17 Alkaline Phosphatase 54 53 Total Protein 5.5 L D 5.4 L Albumin 3.1 L D 3.0 L Microbiology Microbiology Results: Microbiology 11/13/21 12:52 Blood Culture - Preliminary Blood - Venous No growth after 24 hours. 11/13/21 12:48 Blood Culture - Preliminary Blood - Venous No growth after 24 hours. 11/13/21 00:00 Urine Culture - Final Urine clean catch - Urine nichols top Assessment and Plan (1) Urinary tract obstruction due to kidney stone: Status: Acute (2) Pyelonephritis: Status: Acute Plan 26-year-old female with 3 days of right flank pain accompanied by nausea and vomiting subjective fevers. She denies dysuric symptoms. In the emergency room, CT scan demonstrates severe right hydronephrosis from a 5 x 7 mm right proximal ureteral stone. There is significant right hoang nephric fluid and stranding. Case was discussed by Urology who will see in the a.m.. 1. Right hydronephrosis secondary to right proximal ureteral stone -still with significant discomfort; utilizing pain management as ordered -pain management with morphine and oxycodone as needed -empiric Zosyn pending cultures Vena evaes boots Full code Patient will require treatment of likely pyelonephritis and to ensure white coun t is decreasing Quality Stroke Does the patient have a stroke diagnosis?: No VTE Prior VTE?: No VTE Risk Level:: Medical - moderate - high VTE Device Contraindication: N/A - Device Ordered VTE Drug Contraindication: Treatment Not Indicated
--- NOTE | 2021-11-15 12:05 | HO.POSTANES ---
Post Anesthesia Evaluation Post Anesthesia Evaluation Vital Signs: Vital Signs Temp Pulse Resp BP Pulse Ox 11/15/21 07:50 97 11/15/21 07:30 97.7 F 72 18 101/46 L 98 Anesthesia: General Mental Status: Awake Pain Control: Satisfactory Nausea/Vomiting: None Hydration: Adequate Anesthesia-Related Issues: No Anes. Related Issues
[2021-11-15] MEDS: Morphine Sulfate 4 MG/ML CARTRIDGE IVPUSH ×2 (13:22→18:19)
[2021-11-15 15:20] VITALS: BP 109/75; PULSE 74; RESP 15; TEMP 36.5; O2SAT 99
[2021-11-15 18:19] VITALS: RESP 16
[2021-11-15 19:28] VITALS: BP 100/57; PULSE 79; RESP 14; TEMP 36.1; O2SAT 99
[2021-11-15 23:22] VITALS: BP 104/61; PULSE 81; RESP 16; TEMP 37.9; O2SAT 100
[2021-11-16] MEDS: Morphine Sulfate 4 MG/ML CARTRIDGE IVPUSH ×3 (00:16→10:59)
[2021-11-16] MEDS: Piperacillin Sodium/Tazobactam 4.5 GM in 0.9 % Sodium Chloride 100 ML IV ×4 (02:23→20:37)
[2021-11-16 05:48] LABS: MANUAL DIFF FLAG NO
[2021-11-16 06:04] LABS: Basophils Percent Auto 0.2 % (0-2); Eosinophils Absolute Auto 0.1 X10*3/uL (0.0-0.4); Eosinophils Percent Auto 0.8 % (0-4); Hematocrit 33.6 % (37.0-47.0); Hemoglobin 10.6 g/dl (12.0-16.0); Imm Gran Abs Auto 0.15 X10*3/uL (0.00-0.03); Imm Gran Pct Auto 1.1 % (0.0-0.4); Lymphocytes Absolute Auto 3.6 X10*3/uL (1.2-4.9); Lymphocytes Percent Auto 26.9 % (20-40); Mean Corpuscular HGB Conc 31.5 g/dl (31.0-35.0); Mean Corpuscular Hemoglobin 26.1 pg (27.0-33.0); Mean Corpuscular Volume 82.8 fL (80.0-98.0); Mean Platelet Volume 11.7 fL (9.4-12.3); Monocytes Absolute Auto 0.9 X10*3/uL (0.1-1.2); Neutrophils Absolute Auto 8.6 x10*3/uL (2.0-8.3); Platelet Count 235 X10*3/uL (160-400); Red Blood Count 4.06 X10*6/uL (4.20-5.50); Red Cell Distribution Width 13.9 % (11.0-16.0); White Blood Count 13.5 X10*3/uL (4.8-10.8)
[2021-11-16 06:13] LABS: Alanine Aminotransferase 16 U/L (0-31); Alkaline Phosphatase 53 U/L (39-117); Anion Gap 11 (12-20); Aspartate Amino Transferase 13 U/L (5-31); Bilirubin Total 0.4 mg/dL (0.0-1.0); Blood Urea Nitrogen 10 mg/dL (9-16); Calcium 8.2 mg/dL (8.4-10.2); Carbon Dioxide 24 mmol/L (22-29); Chloride 107 mmol/L (96-108); Creatinine Clr Calc Pharmacy 84.5; Estimated Glomerular Filt Rate > 60; Glucose Fasting 94 mg/dL (60-99); Potassium 3.5 mmol/L (3.3-5.1); Sodium 138 mmol/L (135-145); Total Protein 5.4 g/dL (6.5-8.0)
[2021-11-16 08:00] VITALS: O2SAT 96
[2021-11-16 08:24] VITALS: BP 99/57; PULSE 73; RESP 18; TEMP 36.9; O2SAT 97
--- NOTE | 2021-11-16 11:33 | HO.PM.IMPN ---
Subjective Subjective Date of Service: 11/24/21 Interval History: Much more discomfort this a.m.; utilizing pain medicine as ordered. White count remains 13,000 Review of Systems Denies chest pain Denies shortness of breath Denies nausea vomiting diarrhea Denies fever chills Physical Exam Vital Signs: Vital Signs: Last Vital Signs Temp 98.5 F 11/16/21 08:24 Pulse 73 11/16/21 08:24 Resp 18 11/16/21 08:24 BP 99/57 L 11/16/21 08:24 Pulse Ox 97 11/16/21 08:24 BMI result Body Mass Index 31.6 Const: Other: Awake alert oriented x3 no acute distress Resp: Other: Clear to auscultation bilaterally no rales rhonchi wheezes Cardio: Other: No S4; positive S1-S2; no S3 murmurs rubs or gallops GI: Other: Soft nontender nondistended with normoactive bowel sounds Back/Spine/Pelvis: Other: Right CVA tenderness Neuro: Other: Cranial nerves 2-12 were grossly intact as tested. Motor is 5/5 bilaterally. Sensations intact. Cognition appropriate Extrem: Other: No edema bilaterally Objective Data Active Medications Acetaminophen (Acetaminophen 325 Mg Tablet) 650 mg PO Q6H PRN PRN Reason: Pain, Mild (Pain Scale 1-3) Last Admin: 11/15/21 07:45 Dose: 650 mg Documented by: ASHLEY Fentanyl (Fentanyl Citrate/Pf 100 Mcg/2 Ml Vial) 50 mcg IVPUSH Q5M PRN; Protocol PRN Reason: Pain, Severe (Pain Scale 7-10) Piperacillin Sod/Tazobactam (Sod 4.5 gm/ Sodium Chloride) 100 mls @ 200 mls/hr IV Q6H [facility] Last Infusion: 11/16/21 09:23 Dose: 0 mls/hr Documented by: LAMONT Morphine Sulfate (Morphine Sulfate 4 Mg/Ml Cartridge) 4 mg IVPUSH Q4H PRN; Protocol PRN Reason: Pain, Severe (Pain Scale 7-10) Last Admin: 11/16/21 10:59 Dose: 4 mg Documented by: LAMONT Ondansetron HCl (Ondansetron Hcl 4 Mg/2 Ml Vial) 4 mg IVPUSH ONCE PRN PRN Reason: Nausea and Vomiting Oxycodone HCl (Oxycodone Hcl Immed Release 5 Mg Tablet) 5 mg PO Q4H PRN PRN Reason: Pain, Moderate (Pain Scale 4-6 Last Admin: 11/15/21 07:46 Dose: 5 mg Documented by: ASHLEY Oxycodone HCl (Oxycodone Hcl Immed Release 5 Mg Tablet) 5 mg PO ONCE PRN PRN Reason: Pain, Severe (Pain Scale 7-10) Pharmacy Consult (Consult Rx Perform Med Rec) 1 each MISCELLANE ONCE PRN PRN Reason: Consult order Sodium Chloride (0.9 % Sodium Chloride Flush 3 Ml Syringe) 3 ml IVFLUSH QSHIFT [facility] Last Admin: 11/16/21 09:23 Dose: Not Given Documented by: LAMONT Non-Admin Reason: IV Running Labs CBC & Chem 7: 11/21/21 05:19 11/20/21 05:19 Labs: Laboratory Results - last 24 hr 11/16/21 11/16/21 05:33 05:33 MCV 82.8 MCH 26.1 L MCHC 31.5 RDW 13.9 Plt Count 235 MPV 11.7 Immature Gran % (Auto) 1.1 H Neut % (Auto) 64.0 Lymph % (Auto) 26.9 [place] % (Auto) 7.0 Eos % (Auto) 0.8 Baso % (Auto) 0.2 Lymph # (Auto) 3.6 [place] # (Auto) 0.9 Eos # (Auto) 0.1 Baso # (Auto) 0.0 Abs Immat Gran (auto) 0.15 H Absolute Neuts (auto) 8.6 H Absolute Nucleated RBC 0.000 Nucleated RBC % (auto) 0.0 Anion Gap 11 L Estim Creat Clear Calc 84.5 Estimated GFR > 60 Fasting Glucose 94 Calcium 8.2 L Total Bilirubin 0.4 AST 13 ALT 16 Alkaline Phosphatase 53 Total Protein 5.4 L Albumin 3.0 L Microbiology Microbiology Results: Microbiology 11/13/21 12:52 Blood Culture - Preliminary Blood - Venous No growth after 48 hours. 11/13/21 12:48 Blood Culture - Preliminary Blood - Venous No growth after 48 hours. Assessment and Plan (1) Urinary tract obstruction due to kidney stone: Status: Acute Plan 26-year-old female with 3 days of right flank pain accompanied by nausea and vomiting subjective fevers. She denies dysuric symptoms. In the emergency room, CT scan demonstrates severe right hydronephrosis from a 5 x 7 mm right proximal ureteral stone. There is significant right hoang nephric fluid and stranding. Case was discussed by Urology who will see in the a.m.. 1. Right hydronephrosis secondary to right proximal ureteral stone -still with significant discomfort; utilizing pain management as ordered -pain management with morphine and oxycodone as needed -empiric Zosyn pending cultures Vena dynes boots Full code Patient will require treatment of likely pyelonephritis and to ensure white count is decreasing Quality Stroke Does the patient have a stroke diagnosis?: No VTE Prior VTE?: No VTE Risk Level:: Medical - moderate - high VTE Device Contraindication: N/A - Device Ordered VTE Drug Contraindication: Treatment Not Indicated
--- NOTE | 2021-11-16 13:39 | MHC.CM.PN ---
nurse watch case polisher note e;lectronic medical record reviewed along with case discussed with staff nurse and hospitals[facility] on multiple disciplianry rounds. per documentation patient admitted with 3 days of flank pain with nausea , emesis and subjective fevers. continues with flank pain secondary [id number] HYDRONEPHROSIS SECONDARY TO RIGHT PROIMAL URETERAL STONE, RECIVING IV MORPGHINE AND PO ANALGEICS IV ONASTRON PRN. UROLOGY CONCULT CALLED DISCHARGE PLAN HOME WITH FAMILY NO [id number] ANTICUIPATED LIVES WITH TWO CHILDREN TRANSPORTATION [facility] [place] [ASS OR FAMILY FRIEND
[2021-11-16 15:18] VITALS: BP 97/46; PULSE 73; RESP 18; TEMP 37.7; O2SAT 94
[2021-11-16] MEDS: 0.9 % Sodium Chloride Flush 3 ML SYRINGE IVFLUSH (16:23)
[2021-11-16] MEDS: oxyCODONE HCl Immed Release 5 MG TABLET PO (16:30)
[2021-11-16] MEDS: Acetaminophen 325 MG TABLET 650 MG PO (16:31)
[2021-11-16 23:58] VITALS: BP 107/53; PULSE 67; RESP 18; TEMP 37.1; O2SAT 96
[2021-11-17] MEDS: 0.9 % Sodium Chloride Flush 3 ML SYRINGE IVFLUSH ×4 (00:33→23:27)
[2021-11-17] MEDS: Morphine Sulfate 4 MG/ML CARTRIDGE IVPUSH ×3 (00:42→10:18)
[2021-11-17] MEDS: Piperacillin Sodium/Tazobactam 4.5 GM in 0.9 % Sodium Chloride 100 ML IV ×3 (01:18→20:15)
[2021-11-17 05:35] LABS: MANUAL DIFF FLAG NO
[2021-11-17 05:38] VITALS: BP 102/57; PULSE 72; RESP 20; O2SAT 96
[2021-11-17 05:39] LABS: Basophils Percent Auto 0.2 % (0-2); Eosinophils Absolute Auto 0.1 X10*3/uL (0.0-0.4); Hematocrit 34.7 % (37.0-47.0); Hemoglobin 11.1 g/dl (12.0-16.0); Imm Gran Abs Auto 0.41 X10*3/uL (0.00-0.03); Imm Gran Pct Auto 2.8 % (0.0-0.4); Lymphocytes Absolute Auto 3.4 X10*3/uL (1.2-4.9); Lymphocytes Percent Auto 23.1 % (20-40); Mean Corpuscular Hemoglobin 26.5 pg (27.0-33.0); Mean Corpuscular Volume 82.8 fL (80.0-98.0); Mean Platelet Volume 10.8 fL (9.4-12.3); Monocytes Absolute Auto 1.1 X10*3/uL (0.1-1.2); Monocytes Percent Auto 7.7 % (2-11); Neutrophils Absolute Auto 9.6 x10*3/uL (2.0-8.3); Neutrophils Percent Auto 65.2 % (45-73); Platelet Count 252 X10*3/uL (160-400); Red Blood Count 4.19 X10*6/uL (4.20-5.50); Red Cell Distribution Width 14.1 % (11.0-16.0); White Blood Count 14.7 X10*3/uL (4.8-10.8)
[2021-11-17 05:58] LABS: Alanine Aminotransferase 24 U/L (0-31); Albumin Level 3.2 g/dL (3.5-5.0); Alkaline Phosphatase 53 U/L (39-117); Anion Gap 12 (12-20); Aspartate Amino Transferase 21 U/L (5-31); Bilirubin Total 0.6 mg/dL (0.0-1.0); Blood Urea Nitrogen 9 mg/dL (9-16); Calcium 8.5 mg/dL (8.4-10.2); Carbon Dioxide 26 mmol/L (22-29); Chloride 102 mmol/L (96-108); Creatinine Clr Calc Pharmacy 81.4; Estimated Glomerular Filt Rate > 60; Glucose Fasting 95 mg/dL (60-99); Potassium 3.6 mmol/L (3.3-5.1); Sodium 136 mmol/L (135-145); Total Protein 5.8 g/dL (6.5-8.0)
[2021-11-17 07:46] VITALS: BP 108/57; PULSE 87; RESP 18; TEMP 36.3; O2SAT 96
[2021-11-17 08:45] LABS: C Reactive Protein 9.77 mg/dL (< or = 0.50)
--- NOTE | 2021-11-17 10:17 | P.PNIM_ITS ---
Subjective Subjective Date of Service: 11/17/21 Interval History: Worsening pain despite stenting 3d ago No N/V No fever Review of Systems Review of Systems: Yes all other systems are reviewed and are negative Physical Exam Vital Signs: Vital Signs: Last Vital Signs Temp 97.3 F 11/17/21 07:46 Pulse 87 11/17/21 07:46 Resp 18 11/17/21 07:46 BP 108/57 L 11/17/21 07:46 Pulse Ox 96 11/17/21 07:46 BMI result Body Mass Index 31.6 Gen: in no acute distress HEENT: sclera anicteric, moist mucus membranes Neck: supple Lungs: clear to auscultation bilaterally Heart: regular rate and rhythm, no murmurs Abd: soft, non-tender, non-distended : R CVAT Ext: no edema Skin: warm/well-perfused Neuro: alert and oriented x3, no focal findings Psych: appropriate affect Objective Data Active Medications Acetaminophen (Acetaminophen 325 Mg Tablet) 650 mg PO Q6H PRN PRN Reason: Pain, Mild (Pain Scale 1-3) Last Admin: 11/16/21 16:31 Dose: 650 mg Documented by: DAGO Fentanyl (Fentanyl Citrate/Pf 100 Mcg/2 Ml Vial) 50 mcg IVPUSH Q5M PRN; Protocol PRN Reason: Pain, Severe (Pain Scale 7-10) Piperacillin Sod/Tazobactam (Sod 4.5 gm/ Sodium Chloride) 100 mls @ 200 mls/hr IV Q6H [facility] Last Admin: 11/17/21 09:03 Dose: 200 mls/hr Documented by: LAMONT Morphine Sulfate (Morphine Sulfate 4 Mg/Ml Cartridge) 4 mg IVPUSH Q4H PRN; Protocol PRN Reason: Pain, Severe (Pain Scale 7-10) Last Admin: 11/17/21 05:34 Dose: 4 mg Documented by: JAMES Ondansetron HCl (Ondansetron Hcl 4 Mg/2 Ml Vial) 4 mg IVPUSH ONCE PRN PRN Reason: Nausea and Vomiting Oxybutynin Chloride (Oxybutynin Chloride Er 5 Mg Tab.Er.24) 5 mg PO BEDTIME [facility] Last Admin: 11/16/21 20:36 Dose: 5 mg Documented by: DAGO Oxycodone HCl (Oxycodone Hcl Immed Release 5 Mg Tablet) 5 mg PO Q4H PRN PRN Reason: Pain, Moderate (Pain Scale 4-6 Last Admin: 11/16/21 16:30 Dose: 5 mg Documented by: Oxycodone HCl (Oxycodone Hcl Immed Release 5 Mg Tablet) 5 mg PO ONCE PRN PRN Reason: Pain, Severe (Pain Scale 7-10) Pharmacy Consult (Consult Rx Perform Med Rec) 1 each MISCELLANE ONCE PRN PRN Reason: Consult order Phenazopyridine HCl (Phenazopyridine Hcl 100 Mg Tablet) 100 mg PO TID PRN PRN Reason: Muscle Spasm Sodium Chloride (0.9 % Sodium Chloride Flush 3 Ml Syringe) 3 ml IVFLUSH QSHIFT [facility] Last Admin: 11/17/21 09:04 Dose: 3 ml Documented by: LAMONT Labs CBC & Chem 7: 11/17/21 05:21 11/17/21 05:21 Labs: Laboratory Results - last 24 hr 11/17/21 11/17/21 11/17/21 05:21 05:21 05:21 MCV 82.8 MCH 26.5 L MCHC 32.0 RDW 14.1 Plt Count 252 MPV 10.8 Immature Gran % (Auto) 2.8 H Neut % (Auto) 65.2 Lymph % (Auto) 23.1 [place] % (Auto) 7.7 Eos % (Auto) 1.0 Baso % (Auto) 0.2 Lymph # (Auto) 3.4 [place] # (Auto) 1.1 Eos # (Auto) 0.1 Baso # (Auto) 0.0 Abs Immat Gran (auto) 0.41 H Absolute Neuts (auto) 9.6 H Absolute Nucleated RBC 0.000 Nucleated RBC % (auto) 0.0 Anion Gap 12 Estim Creat Clear Calc 81.4 Estimated GFR > 60 Fasting Glucose 95 Calcium 8.5 Total Bilirubin 0.6 AST 21 D ALT 24 Alkaline Phosphatase 53 C-Reactive Protein 9.77 H Total Protein 5.8 L Albumin 3.2 L Random Cortisol Cancelled Assessment and Plan (1) Urinary tract obstruction due to kidney stone: Status: Acute Plan hospital d#5 26yo F p/w 3d of R flank pain with N/V, admittted with severe R hydronephrosis from 5x7mm proximal ureteral stone with perinephric fluid/stranding # R hydronephrosis secondary to proximal ureteral stone # POD#3 stenting with persistent pain + leukocytosis; re-consult Urology; recheck US - continue morphine + oxycodone - on pip/chase d#5, UCx contaminated # VTE ppx - SCDs Quality Stroke Does the patient have a stroke diagnosis?: No VTE Prior VTE?: No VTE Risk Level:: Medical - moderate - high VTE Device Contraindication: N/A - Device Ordered VTE Drug Contraindication: Treatment Not Indicated
--- NOTE | 2021-11-17 10:53 | P.CDIC_ITS ---
CDI Concurrent Query Documentation Clarification: PHYSICIAN'S DOCUMENTATION REQUEST Date of Query: 11/17/21 1054 Patient Name: Ute Daniels Admit Date: 11/13/21 Dear Doctor, A review of the medical record indicates additional documentation may be needed. Please review below and update the documentation accordingly. Risk Factors/Clinical Indicators/Treatments Height and weight evaluation 11/13 patient is Class I Obese with BMI 31.6 4' 9 in height. If possible, please provide an associated diagnosis related to the abnormal BMI, such as: For a BMI >= 30: * Overweight * Obesity * Due to excess calories * Drug induced * Due to other cause Or: * BMI is not significant * Other (please specify) * Unable to determine Use of terms such as suspected, likely, concern for, or probable (associated with a specific diagnosis that is being evaluated, monitored, or treated as if it exists) are acceptable and can be coded in the inpatient setting, when documented at the time of discharge. Thank you, Jennifer Wyatt [facility], CDIS Extension: [phone] Please use your independent medical judgment in providing your response. THIS QUERY IS PART OF THE PERMANENT MEDICAL RECORD Provider Response: Other Other Diagnosis: nonmorbid obesity
--- NOTE | 2021-11-17 11:48 | MHC.CM.PN ---
EMR REVIEWED, PT CONT'S TO RECEIVE IV PAIN MEDS, PER HOSPITALIST PLAN FOR PT TO BE SEEN BY UROLOGY AND ANTIC PT MAY NEED LITHOTRIPSY, NO D/C PLANNED FOR TODAY, CM WILL CONT TO FOLLOW D/C NEEDS.
[2021-11-17] MEDS: oxyCODONE HCl Immed Release 5 MG TABLET PO ×3 (14:08→22:07)
[2021-11-17 15:18] VITALS: BP 90/64; PULSE 100; RESP 18; TEMP 37; O2SAT 97
[2021-11-17 17:20] VITALS: BP 115/56; PULSE 86
[2021-11-17] MEDS: Phenazopyridine HCL 100 MG TABLET PO (17:25)
[2021-11-18] VITALS (12 sets, daily range): BP systolic 102–139; BP diastolic 51–73; PULSE 70–115; RESP 14–20; TEMP 36–37.4; O2SAT 93–98
[2021-11-18] MEDS: Morphine Sulfate 4 MG/ML CARTRIDGE IVPUSH ×3 (00:24→12:30)
[2021-11-18] MEDS: oxyCODONE HCl Immed Release 5 MG TABLET PO ×3 (02:41→20:08)
[2021-11-18] MEDS: Piperacillin Sodium/Tazobactam 4.5 GM in 0.9 % Sodium Chloride 100 ML IV ×4 (02:42→19:22)
[2021-11-18 06:11] LABS: Hematocrit 35.2 % (37.0-47.0); Hemoglobin 11.1 g/dl (12.0-16.0); Mean Corpuscular HGB Conc 31.5 g/dl (31.0-35.0); Mean Corpuscular Hemoglobin 26.3 pg (27.0-33.0); Mean Corpuscular Volume 83.4 fL (80.0-98.0); Platelet Count 285 X10*3/uL (160-400); Red Blood Count 4.22 X10*6/uL (4.20-5.50); White Blood Count 16.4 X10*3/uL (4.8-10.8)
[2021-11-18] MEDS: 0.9 % Sodium Chloride Flush 3 ML SYRINGE IVFLUSH ×2 (07:57→19:02)
--- NOTE | 2021-11-18 10:41 | P.PNIM_ITS ---
Subjective Subjective Date of Service: 11/18/21 Interval History: Pain controlled NPO for operative intervention today Review of Systems Review of Systems: Yes all other systems are reviewed and are negative Physical Exam Vital Signs: Vital Signs: Last Vital Signs Temp 97.7 F 11/18/21 07:52 Pulse 79 11/18/21 07:52 Resp 18 11/18/21 07:52 BP 102/51 L 11/18/21 07:52 Pulse Ox 97 11/18/21 07:52 BMI result Body Mass Index 31.6 Gen: in no acute distress HEENT: sclera anicteric, moist mucus membranes Neck: supple Lungs: clear to auscultation bilaterally Heart: regular rate and rhythm, no murmurs Abd: soft, non-tender, non-distended : R CVAT Ext: no edema Skin: warm/well-perfused Neuro: alert and oriented x3, no focal findings Psych: appropriate affect Objective Data Active Medications Acetaminophen (Acetaminophen 325 Mg Tablet) 650 mg PO Q6H PRN PRN Reason: Pain, Mild (Pain Scale 1-3) Last Admin: 11/16/21 16:31 Dose: 650 mg Documented by: DAGO Fentanyl (Fentanyl Citrate/Pf 100 Mcg/2 Ml Vial) 50 mcg IVPUSH Q5M PRN; Protocol PRN Reason: Pain, Severe (Pain Scale 7-10) Piperacillin Sod/Tazobactam (Sod 4.5 gm/ Sodium Chloride) 100 mls @ 200 mls/hr IV Q6H [facility] Last Infusion: 11/18/21 09:11 Dose: 0 mls/hr Documented by: LUIS Morphine Sulfate (Morphine Sulfate 4 Mg/Ml Cartridge) 4 mg IVPUSH Q4H PRN; Protocol PRN Reason: Pain, Severe (Pain Scale 7-10) Last Admin: 11/18/21 05:53 Dose: 4 mg Documented by: TIM Ondansetron HCl (Ondansetron Hcl 4 Mg/2 Ml Vial) 4 mg IVPUSH ONCE PRN PRN Reason: Nausea and Vomiting Oxybutynin Chloride (Oxybutynin Chloride Er 5 Mg Tab.Er.24) 5 mg PO BEDTIME [facility] Last Admin: 11/17/21 20:15 Dose: 5 mg Documented by: TALIA Oxycodone HCl (Oxycodone Hcl Immed Release 5 Mg Tablet) 5 mg PO Q4H PRN PRN Reason: Pain, Moderate (Pain Scale 4-6 Last Admin: 11/18/21 07:56 Dose: 5 mg Documented by: LUIS Oxycodone HCl (Oxycodone Hcl Immed Release 5 Mg Tablet) 5 mg PO ONCE PRN PRN Reason: Pain, Severe (Pain Scale 7-10) Pharmacy Consult (Consult Rx Perform Med Rec) 1 each MISCELLANE ONCE PRN PRN Reason: Consult order Phenazopyridine HCl (Phenazopyridine Hcl 100 Mg Tablet) 100 mg PO TID PRN PRN Reason: Muscle Spasm Last Admin: 11/17/21 17:25 Dose: 100 mg Documented by: TALIA Sodium Chloride (0.9 % Sodium Chloride Flush 3 Ml Syringe) 3 ml IVFLUSH QSHI Last Admin: 11/18/21 07:57 Dose: 3 ml Documented by: LUIS Labs CBC & Chem 7: 11/18/21 05:39 11/17/21 05:21 Labs: Laboratory Results - last 24 hr 11/18/21 05:39 MCV 83.4 MCH 26.3 L MCHC 31.5 RDW 14.0 Plt Count 285 MPV 11.0 Absolute Nucleated RBC 0.000 Nucleated RBC % (auto) 0.0 Assessment and Plan (1) Urinary tract obstruction due to kidney stone: Status: Acute Plan hospital d#6 26yo F p/w 3d of R flank pain with N/V, admittted with severe R hydronephrosis from 5x7mm proximal ureteral stone with perinephric fluid/stranding # R hydronephrosis secondary to proximal ureteral stone # POD#4 stenting but with persistent pain + leukocytosis; repeat US pending; to OR today for repeat urologic intervention - continue morphine + oxycodone - on pip/chase d#6, UCx contaminated # VTE ppx - SCDs Quality Stroke Does the patient have a stroke diagnosis?: No VTE Prior VTE?: No VTE Risk Level:: Medical - moderate - high VTE Device Contraindication: N/A - Device Ordered VTE Drug Contraindication: Treatment Not Indicated
--- NOTE | 2021-11-18 12:57 | MHC.CM.PN ---
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 PER HOSPITALSIT DOCUMENTATION (PATIENT WITH UTI OBSTRUCTION SECONDARY TO KIDNEY STONE , S/LA HYDRONEPHROSIA SECONDARY TO PROXIMAL URETHERAL STONE S/P STENTING WITH PERSISTENT PAIN , ELEVATED WBC GOING TO THE OR TODAY FOR REPEAT UROLOGIC PROCEDURE. CONTINUES ON MORPHINE AND PO ANALGEICS DISCHARGE PLAN HOME WITH NO SERVICES PCP FOLLOW UP UROLOGICAL FOLLOW UP PER DISCHARGE INSTRUCTIONS TRANSPORTATION FAMILY OR WILL NEED BUS PASSES11/18 (1) Urinary tract obstruction due to kidney stone: Status: Acute Plan hospital d#6 26yo F p/w 3d of R flank pain with N/V, admittted with severe R hydronephrosis from 5x7mm proximal ureteral stone with perinephric fluid/stranding # R hydronephrosis secondary to proximal ureteral stone # POD#4 stenting but with persistent pain + leukocytosis; repeat US pending; to OR today for repeat urologic intervention - continue morphine + oxycodone - on pip/chase d#6, UCx contaminated # VTE ppx - SCDs
--- NOTE | 2021-11-18 13:02 | MHC.CM.NN ---
11/18/21 12:57 - Case Mgmt Progress Note [facility] Num[facility] [id number] : 1995 Patient Age: 26 NURSE STEAM TABLE WORKER NOTE ELECTRONIC MEDICAL RECORD REVIEQED ALONG WITH CASE DISUCSSED WITH RAGINITIALMICH REYNAGA WITH PATIENT THIS AM SHE REPORTED THAT SHE CONTINUES WITH PERSISTENT PAIN AND IS GOING FOR SURGERY TODAY . PER HOSPITALSIT DOCUMENTATION (PATIENT WITH UTI OBSTRUCTION SECONDARY TO KIDNEY STONE , S/IN HYDRONEPHROSIA SECONDARY TO PROXIMAL URETHERAL STONE S/P STENTING WITH PERSISTENT PAIN , ELEVATED WBC GOING TO THE OR TODAY FOR REPEAT UROLOGIC PROCEDURE. CONTINUES ON MORPHINE AND PO ANALGEICS DISCHARGE PLAN HOME WITH NO SERVICES PCP FOLLOW UP UROLOGICAL FOLLOW UP PER DISCHARGE INSTRUCTIONS TRANSPORTATION FAMILY OR WILL NEED BUS PASSES11/18
--- NOTE | 2021-11-18 13:37 | P.PNUR_ITS ---
Subjective Subjective Date of Service: 11/18/21 Interval history: Not tolerating stent on right side Discussed options including PCN tube placement versus ureteroscopy She would like to move ahead with Procedure This will be organized - cystoscopy, right stent removal, right retrograde with right ureteroscopy laser lithotripsy Physical Exam Vital Signs: Vital Signs: Last Vital Signs Temp 97.7 F 11/18/21 07:52 Pulse 79 11/18/21 07:52 Resp 18 11/18/21 07:52 BP 102/51 L 11/18/21 07:52 Pulse Ox 97 11/18/21 07:52 BMI result Body Mass Index 31.6 Const: General: cooperative, healthy appearing, comfortable and no acute distress Orientation/consciousness: patient oriented x3 HEENT: Face and sinus: Yes normal facial exam Mouth: moist mucous membranes Neck: Neck: Yes normal visual inspection, Yes full ROM and Yes trachea midline Chest: Chest palpation & inspection: normal inspection of the chest Resp: Effort & Inspection: normal respiratory effort, able to speak in complete sentences and no respiratory distress GI: Inspection: Yes normal to inspection Back/Spine/Pelvis: Cervical Spine: normal cervical lordosis Thoracic/Lumbar Spine: thoracic and lumbar spine normal to inspection Skin: General skin exam: no rashes or lesions noted Neuro: General: patient oriented x3, tone normal and moves all extremities Extrem: General: Yes normal to inspection and Yes capillary refill normal Urology Results Labs CBC & Chem 7: 11/18/21 05:39 11/17/21 05:21 Labs: Laboratory Results - last 24 hr 11/18/21 05:39 WBC 16.4 H RBC 4.22 Hgb 11.1 L Hct 35.2 L MCV 83.4 MCH 26.3 L MCHC 31.5 RDW 14.0 Plt Count 285 MPV 11.0 Absolute Nucleated RBC 0.000 Nucleated RBC % (auto) 0.0 Progress Note: A&P Assessment and plan (1) Urinary tract obstruction due to kidney stone: Status: Acute (2) Pyelonephritis: Status: Acute Plan Ureteroscopy We discussed the nature of the decision and reasonable alternatives for perfo rming the above surgery. Interventions include chemical dissolution, ESWL, ureteroscopy with laser lithotripsy and stent placement, PCNL. Options such as medical therapy were discussed. The relative uncertainties and benefits related to each alternate procedure were adequately discussed. General surgical risks including, but not limited to, pain, bleeding, infection, myocardial infarction, pulmonary embolus, deep vein thrombosis and cerebrovascular accident which may result in further hospitaliz ation were discussed. Full disclosure of the procedure as well as all major risks, benefits and co mplications were discussed including but not limited to damage to the urethra, bladder and kidney infection, damage to the ureter, stent migration or malposition, scarring to the renal pelvis, remnant stone fragments, subsequent stone passage with need for secondary procedures. The overall secondary procedure rate is approximately 10-15%. The success rate of the procedure was discussed. Success of the procedure in the short-term does not necessarily guarantee that long-term success will be main tained. Suitable follow up will need to be maintained. The patient showed understanding of discussion and wishes to proceed with - cystoscopy, retrograde, ureteroscopy, possible lithotripsy/stone basketing and stent on the right side Time Spent With Patient Time: Total time spent is greater than 50% in coordination of care (as documented) at patient's floor/unit and/or counseling patient: Progress Note: Quality Stroke Does the patient have a stroke diagnosis?: No
--- NOTE | 2021-11-18 15:33 | PC.NURSE ---
patient brought down to or for procedure by OR staff
--- NOTE | 2021-11-18 16:24 | HO.ANESPROP2 ---
HPI - Anesthesia Eval Consult details Narrative: 26 F for cysto chemical hunt on face small right hand burn on right hand . PMF Active Problems Active Problems: All Active Problems (Updated 11/13/21 @ 14:17 by Bob Palomares DO) Pyelonephritis (Acute) Urinary tract obstruction due to kidney stone (Acute) UTI (urinary tract infection) (Acute) Past Medical History Medical History No known health problems Family History Family history of problems with anesthesia: No Surgical History History of Problems with Anesthesia: No Social History Social History Household Members: Children Housing: Apartment Do you presently have visiting nurse or other home services: No Patient Tobacco Use Status: Never used Tobacco service: No Meds Allergies Allergy/AdvReac Type Severity Reaction Status Date / Time No Known Allergies Allergy Unverified 04/09/20 16:33 [No Known Allergies*] Active Medications: Current Medications Acetaminophen (Acetaminophen 325 Mg Tablet) 650 mg PO Q6H PRN PRN Reason: Pain, Mild (Pain Scale 1-3) Last Admin: 11/16/21 16:31 Dose: 650 mg Documented by: Fentanyl (Fentanyl Citrate/Pf 100 Mcg/2 Ml Vial) 50 mcg IVPUSH Q5M PRN; Protocol PRN Reason: Pain, Severe (Pain Scale 7-10) Piperacillin Sod/Tazobactam (Sod 4.5 gm/ Sodium Chloride) 100 mls @ 200 mls/hr IV Q6H [facility] Last Infusion: 11/18/21 15:17 Dose: Infused Documented by: Morphine Sulfate (Morphine Sulfate 2 Mg/Ml Cartridge) 2 mg IVPUSH Q2H PRN; Protocol PRN Reason: severe pain Ondansetron HCl (Ondansetron Hcl 4 Mg/2 Ml Vial) 4 mg IVPUSH ONCE PRN PRN Reason: Nausea and Vomiting Oxybutynin Chloride (Oxybutynin Chloride Er 5 Mg Tab.Er.24) 5 mg PO BEDTIME [facility] Last Admin: 11/17/21 20:15 Dose: 5 mg Documented by: Oxycodone HCl (Oxycodone Hcl Immed Release 5 Mg Tablet) 5 mg PO ONCE PRN PRN Reason: Pain, Severe (Pain Scale 7-10) Oxycodone HCl (Oxycodone Hcl Immed Release 5 Mg Tablet) 5 mg PO Q4H PRN PRN Reason: moderate pain Pharmacy Consult (Consult Rx Perform Med Rec) 1 each MISCELLANE ONCE PRN PRN Reason: Consult order Phenazopyridine HCl (Phenazopyridine Hcl 100 Mg Tablet) 100 mg PO TID PRN PRN Reason: Muscle Spasm Last Admin: 11/17/21 17:25 Dose: 100 mg Documented by: Sodium Chloride (0.9 % Sodium Chloride Flush 3 Ml Syringe) 3 ml IVFLUSH QSHIFT [facility] Last Admin: 11/18/21 07:57 Dose: 3 ml Documented by: Home Medications Medication Instructions Recorded Confirmed Last Taken Type No Known Home Meds 11/13/21 11/13/21 Unknown History Exam Exam Date and Time: November 18, 2021 162 Height,Weight and Vital Signs: Height 4 ft 9 in Weight 66.2 kg Last Vital Signs Temp 99.3 F 11/18/21 15:36 Pulse 89 11/18/21 15:36 Resp 16 11/18/21 15:36 BP 115/67 11/18/21 15:36 Pulse Ox 96 11/18/21 15:36 Pertinent Lab Results Pertinent Lab Results: Laboratory Tests 11/13/21 11/13/21 11/13/21 09:10 09:10 09:50 WBC 22.5 H RBC 4.89 Hgb 12.9 Hct 40.5 MCV 82.8 MCH 26.4 L MCHC 31.9 RDW 13.7 Plt Count 195 MPV 11.8 Immature Gran % (Auto) 0.5 H Neut % (Auto) 91.7 H Lymph % (Auto) 4.[address] % (Auto) 3.2 Eos % (Auto) 0.0 Baso % (Auto) 0.1 Lymph # (Auto) 1.[address] [place] # (Auto) 0.7 Eos # (Auto) 0.0 Baso # (Auto) 0.0 Abs Immat Gran (auto) 0.12 H Absolute Neuts (auto) 20.6 H Absolute Nucleated RBC 0.000 Nucleated RBC % (auto) 0.0 Smear Tech's Comments VERIFIED Sodium Potassium Chloride Carbon Dioxide Anion Gap BUN Creatinine Estim Creat Clear Calc Estimated GFR Random Glucose Fasting Glucose Lactic Acid Calcium Total Bilirubin AST ALT Alkaline Phosphatase Troponin I High Sens C-Reactive Protein Total Protein Albumin Lipase Random Cortisol Urine Color YELLOW Urine Appearance HAZY Urine pH 6.0 Ur Specific [place] >= 1.030 H Urine Protein 2+ H Urine Glucose (UA) NEG Urine Ketones 40 Urine Blood 3+ H Urine Nitrite NEG Ur Leukocyte Esterase 1+ H Urine RBC 5-9 H Urine WBC 15-29 H Ur Squamous Epith Cells 3+ Urine Bacteria 2+ Urine Mucus 3+ Urine Test NEGATIVE COVID-19 (JESUS) COVID-19 Clin Com 11/13/21 11/13/21 11/13/21 09:50 09:50 09:50 WBC RBC Hgb Hct MCV MCH MCHC RDW Plt Count MPV Immature Gran % (Auto) Neut % (Auto) Lymph % (Auto) [facility] % (Auto) Eos % (Auto) Baso % (Auto) Lymph # (Auto) [facility] # (Auto) Eos # (Auto) Baso # (Auto) Abs Immat Gran (auto) Absolute Neuts (auto) Absolute Nucleated RBC Nucleated RBC % (auto) Smear Tech's Comments Sodium 134 L Potassium 4.1 Chloride 101 Carbon Dioxide 23 Anion Gap 14 BUN 14 Creatinine 1.27 Estim Creat Clear Calc 52.4 Estimated GFR 51 Random Glucose 128 H Fasting Glucose Lactic Acid Calcium 8.9 Total Bilirubin 0.8 AST 25 ALT 25 Alkaline Phosphatase 64 Troponin I High Sens < 3.5 C-Reactive Protein Total Protein 7.2 Albumin 4.0 Lipase 7 L Random Cortisol Urine Color Urine Appearance Urine pH Ur Specific [place] Urine Protein Urine Glucose (UA) Urine Ketones Urine Blood Urine Nitrite Ur Leukocyte Esterase Urine RBC Urine WBC Ur Squamous Epith Cells Urine Bacteria Urine Mucus Urine Test COVID-19 (JESUS) Negative COVID-19 Clin Com See Note 11/13/21 11/14/21 11/14/21 12:48 08:03 08:03 WBC 15.6 H RBC 4.06 L Hgb 10.8 L Hct 34.1 L MCV 84.0 MCH 26.6 L MCHC 31.7 RDW 13.6 Plt Count 165 MPV 12.1 Immature Gran % (Auto) 0.5 H Neut % (Auto) 82.5 H Lymph % (Auto) 12.[address] [place] % (Auto) 3.5 Eos % (Auto) 0.6 Baso % (Auto) 0.1 Lymph # (Auto) 2.0 [facility] # (Auto) 0.6 Eos # (Auto) 0.1 Baso # (Auto) 0.0 Abs Immat Gran (auto) 0.08 H Absolute Neuts (auto) 12.8 H Absolute Nucleated RBC 0.000 Nucleated RBC % (auto) 0.0 Smear Tech's Comments Sodium 138 Potassium 4.1 Chloride 107 Carbon Dioxide 22 Anion Gap 13 BUN 13 Creatinine 0.79 Estim Creat Clear Calc 84.5 Estimated GFR > 60 Random Glucose 80 Fasting Glucose Lactic Acid 1.2 Calcium 8.0 L D Total Bilirubin 1.2 H AST 15 ALT 15 Alkaline Phosphatase 54 Troponin I High Sens C-Reactive Protein Total Protein 5.5 L D Albumin 3.1 L D Lipase Random Cortisol Urine Color Urine Appearance Urine pH Ur Specific [place] Urine Protein Urine Glucose (UA) Urine Ketones Urine Blood Urine Nitrite Ur Leukocyte Esterase Urine RBC Urine WBC Ur Squamous Epith Cells Urine Bacteria Urine Mucus Urine Test COVID-19 (JESUS) COVID-19 Clin Com 11/15/21 11/15/21 11/16/21 05:32 05:32 05:33 WBC 16.1 H 13.5 H RBC 3.97 L 4.06 L Hgb 10.4 L 10.6 L Hct 33.0 L 33.6 L MCV 83.1 82.8 MCH 26.2 L 26.1 L MCHC 31.5 31.5 RDW 13.7 13.9 Plt Count 206 235 MPV 11.8 11.7 Immature Gran % (Auto) 1.1 H 1.1 H Neut % (Auto) 81.7 H 64.0 Lymph % (Auto) 12.[address] % (Auto) 4.9 7.0 Eos % (Auto) 0.1 0.8 Baso % (Auto) 0.1 0.2 Lymph # (Auto) 2.[address] [place] # (Auto) 0.8 0.9 Eos # (Auto) 0.0 0.1 Baso # (Auto) 0.0 0.0 Abs Immat Gran (auto) 0.17 H 0.15 H Absolute Neuts (auto) 13.2 H 8.6 H Absolute Nucleated RBC 0.000 0.000 Nucleated RBC % (auto) 0.0 0.0 Smear Tech's Comments Sodium 138 Potassium 4.0 Chloride 109 H Carbon Dioxide 22 Anion Gap 11 L BUN 13 Creatinine 0.75 Estim Creat Clear Calc 89.0 Estimated GFR > 60 Random Glucose Fasting Glucose 118 H Lactic Acid Calcium 8.0 L Total Bilirubin 0.7 AST 17 ALT 17 Alkaline Phosphatase 53 Troponin I High Sens C-Reactive Protein Total Protein 5.4 L Albumin 3.0 L Lipase Random Cortisol Urine Color Urine Appearance Urine pH Ur Specific [place] Urine Protein Urine Glucose (UA) Urine Ketones Urine Blood Urine Nitrite Ur Leukocyte Esterase Urine RBC Urine WBC Ur Squamous Epith Cells Urine Bacteria Urine Mucus Urine Test COVID-19 (JESUS) COVID-19 [employer] Com 11/16/21 11/17/21 11/17/21 05:33 05:21 05:21 WBC 14.7 H RBC 4.19 L Hgb 11.1 L Hct 34.7 L MCV 82.8 MCH 26.5 L MCHC 32.0 RDW 14.1 Plt Count 252 MPV 10.8 Immature Gran % (Auto) 2.8 H Neut % (Auto) 65.2 Lymph % (Auto) 23.1 [facility] % (Auto) 7.7 Eos % (Auto) 1.0 Baso % (Auto) 0.2 Lymph # (Auto) 3.4 [facility] # (Auto) 1.1 Eos # (Auto) 0.1 Baso # (Auto) 0.0 Abs Immat Gran (auto) 0.41 H Absolute Neuts (auto) 9.6 H Absolute Nucleated RBC 0.000 Nucleated RBC % (auto) 0.0 Smear Tech's Comments Sodium 138 136 Potassium 3.5 3.6 Chloride 107 102 Carbon Dioxide 24 26 Anion Gap 11 L 12 BUN 10 9 Creatinine 0.79 0.82 Estim Creat Clear Calc 84.5 81.4 Estimated GFR > 60 > 60 Random Glucose Fasting Glucose 94 95 Lactic Acid Calcium 8.2 L 8.5 Total Bilirubin 0.4 0.6 AST 13 21 D ALT 16 24 Alkaline Phosphatase 53 53 Troponin I High Sens C-Reactive Protein 9.77 H Total Protein 5.4 L 5.8 L Albumin 3.0 L 3.2 L Lipase Random Cortisol Urine Color Urine Appearance Urine pH Ur Specific [place] Urine Protein Urine Glucose (UA) Urine Ketones Urine Blood Urine Nitrite Ur Leukocyte Esterase Urine RBC Urine WBC Ur Squamous Epith Cells Urine Bacteria Urine Mucus Urine Test COVID-19 (JESUS) COVID-19 Clin Com 11/17/21 11/18/21 05:21 05:39 WBC 16.4 H RBC 4.22 Hgb 11.1 L Hct 35.2 L MCV 83.4 MCH 26.3 L MCHC 31.5 RDW 14.0 Plt Count 285 MPV 11.0 Immature Gran % (Auto) Neut % (Auto) Lymph % (Auto) [facility] % (Auto) Eos % (Auto) Baso % (Auto) Lymph # (Auto) [facility] [place] # (Auto) Eos # (Auto) Baso # (Auto) Abs Immat Gran (auto) Absolute Neuts (auto) Absolute Nucleated RBC 0.000 Nucleated RBC % (auto) 0.0 Smear Tech's Comments Sodium Potassium Chloride Carbon Dioxide Anion Gap BUN Creatinine Estim Creat Clear Calc Estimated GFR Random Glucose Fasting Glucose Lactic Acid Calcium Total Bilirubin AST ALT Alkaline Phosphatase Troponin I High Sens C-Reactive Protein Total Protein Albumin Lipase Random Cortisol Cancelled Urine Color Urine Appearance Urine pH Ur Specific [place] Urine Protein Urine Glucose (UA) Urine Ketones Urine Blood Urine Nitrite Ur Leukocyte Esterase Urine RBC Urine WBC Ur Squamous Epith Cells Urine Bacteria Urine Mucus Urine Test COVID-19 (JESUS) COVID-19 Clin Com Airway Mallampati Class: II TM Dist: >3cm Neck ROM: Full Loose/Missing/Broken Teeth: Yes (chipped ) Heart: s1 s2 Lungs: b/l breath sounds Assessment and Plan Assessment Anesthesia Assessment: Anesthesia Plan Discussed and Chart Reviewed Final Anesthetic Review Family History of Problems with Anesthesia: No History of Problems with Anesthesia: No NPO: Yes ASA Class: II and Emergency Final Preanesthetic Review: Meds/Allgs Chart Reviewed, Consent Obtained/Reviewed and Anes Risks/Benef Reviewed Patient Risk: Intermediate Procedure Risk: Intermediate Anesthetic Plan Anesthetic Plan: GA Disposition: Inp. Admit - [facility]MC
--- NOTE | 2021-11-18 16:34 | MHC.SHP ---
Pre-Procedural Eval Section A Date of Service: 11/18/21 The patient is an INPATIENT: Yes Changes since office visit: No Cold of Flu in the past 2 weeks, No New Medical Problems, No Changes in Medication and No Patient answered all questions The History & Physical has been completed within 30 days and I have reviewed it.: Yes Section B Chief Complaint: right flank pain Allergies: Allergies Allergy/AdvReac Type Severity Reaction Status Date / Time No Known Allergies Allergy Unverified 04/09/20 16:33 [No Known Allergies*] Plan Diagnosis/Plan: Unchanged (cystoscopy, right, stent removal, ureteroscopy, laser, basketing) I have reviewed the history and physical and performed a pertinent physical examination on my patient. No changes have occurred unless specified.
--- NOTE | 2021-11-18 17:43 | P.OP_ITS ---
Operative Note Operative Note Date of Service: 11/18/21 Narrative: PreOperative Diagnosis: Right renal stone Post Operative Diagnosis: right renal stone Procedure: - cystoscopy, right stent removal, right retrograde - right dilatation of ureteric orifice under fluoroscopy - right ureteroscopy, laser lithotripsy, stone basketing Surgeon: Dr Ramy Krueger Anesthesia: General Indications for procedure: S right renal stone and not tolerant of stent Procedure: After informed consent was verified patient was brought to the operating placed in supine position. Anesthesia was administered per protocol. Patient was placed in modified dorsal lithotomy position and prepped and draped in a sterile fashion. Safety pause time-out and side of surgery confirmed. Antibiotics confirmed. 22 [place] cystoscope was inserted per urethra. Bladder was normal in its entirety. right stent coming from right ureteric orifice. The Right ureteric orifice was cannulated and a retrograde examination was performed around the stent.. No stone seen along stent. Stent was then removed after the Sensor wide been placed alongside . The rigid cystoscope was removed and the inner cannula of ureteric access sheath was used under fluoroscopy to dilate the ureteric orifice. The ureteric access sheath was placed and the inner cannula with access wire removed. The digital flexible ureteral scope was placed. stone was found within the renal pelvis. Using a 200 micron laser fiber the stone was broken into small pieces. Attempt made for removal with 0 tip basket. Stone was really of a infectious nature and very soft and could not easily be removed. The renal pelvis was washed clear. Decision was made not to leave a stent The bladder was emptied. The patient tolerated the procedure well and was extubated in the operating room, and transferred in stable condition to the recovery area. Pathology: stone Drains: none left
[2021-11-18] MEDS: Phenazopyridine HCL 100 MG TABLET PO (19:19)
[2021-11-18] MEDS: Acetaminophen 325 MG TABLET 650 MG PO (19:21)
[2021-11-19] MEDS: 0.9 % Sodium Chloride Flush 3 ML SYRINGE IVFLUSH ×4 (00:04→20:51)
[2021-11-19] MEDS: Morphine Sulfate 2 MG/ML CARTRIDGE IVPUSH ×4 (00:10→23:35)
[2021-11-19] MEDS: Piperacillin Sodium/Tazobactam 4.5 GM in 0.9 % Sodium Chloride 100 ML IV ×2 (02:29→07:51)
[2021-11-19] MEDS: oxyCODONE HCl Immed Release 5 MG TABLET PO ×2 (04:40→20:43)
[2021-11-19 04:44] VITALS: TEMP 36.3
[2021-11-19] MEDS: Phenazopyridine HCL 100 MG TABLET PO ×2 (06:01→20:49)
[2021-11-19 06:11] LABS: Hematocrit 38.6 % (37.0-47.0); Hemoglobin 12.2 g/dl (12.0-16.0); Mean Corpuscular HGB Conc 31.6 g/dl (31.0-35.0); Mean Corpuscular Hemoglobin 26.3 pg (27.0-33.0); Mean Corpuscular Volume 83.4 fL (80.0-98.0); Mean Platelet Volume 11.3 fL (9.4-12.3); Platelet Count 313 X10*3/uL (160-400); Red Blood Count 4.63 X10*6/uL (4.20-5.50); Red Cell Distribution Width 13.7 % (11.0-16.0); White Blood Count 16.6 X10*3/uL (4.8-10.8)
[2021-11-19 06:48] LABS: Anion Gap 14 (12-20); Blood Urea Nitrogen 13 mg/dL (9-16); C Reactive Protein 11.03 mg/dL (< or = 0.50); Calcium 9.2 mg/dL (8.4-10.2); Carbon Dioxide 23 mmol/L (22-29); Chloride 104 mmol/L (96-108); Creatinine Clr Calc Pharmacy 90.3; Estimated Glomerular Filt Rate > 60; Glucose Random 127 mg/dL (60-115); Potassium 4.7 mmol/L (3.3-5.1); Sodium 136 mmol/L (135-145)
[2021-11-19 07:37] VITALS: BP 110/68; PULSE 65; RESP 18; TEMP 36.5; O2SAT 95
--- NOTE | 2021-11-19 11:12 | HO.PM.IMPN ---
Subjective Subjective Date of Service: 11/19/21 Interval History: postop d#1, R flank pain improved, has some nausea Review of Systems Review of Systems: Yes all other systems are reviewed and are negative Physical Exam Vital Signs: Vital Signs: Last Vital Signs Temp 97.7 F 11/19/21 07:37 Pulse 65 11/19/21 07:37 Resp 18 11/19/21 07:37 BP 110/68 11/19/21 07:37 Pulse Ox 95 11/19/21 07:37 BMI result Body Mass Index 31.6 Gen: in no acute distress HEENT: sclera anicteric, moist mucus membranes Neck: supple Lungs: clear to auscultation bilaterally Heart: regular rate and rhythm, no murmurs Abd: soft, non-tender, non-distended : R CVAT Ext: no edema Skin: warm/well-perfused Neuro: alert and oriented x3, no focal findings Psych: appropriate affect Objective Data Active Medications Acetaminophen (Acetaminophen 325 Mg Tablet) 650 mg PO Q6H PRN PRN Reason: Pain, Mild (Pain Scale 1-3) Last Admin: 11/16/21 16:31 Dose: 650 mg Documented by: DAGO Fentanyl (Fentanyl Citrate/Pf 100 Mcg/2 Ml Vial) 25 mcg IVPUSH Q5M PRN; Protocol PRN Reason: Pain, Moderate (Pain Scale 4-6 Piperacillin Sod/Tazobactam (Sod 4.5 gm/ Sodium Chloride) 100 mls @ 200 mls/hr IV Q6H [facility] Last Infusion: 11/19/21 08:36 Dose: 0 mls/hr Documented by: LUIS Promethazine HCl 6.25 mg/ (Sodium Chloride) 50.25 mls @ 201 mls/hr IV ONCE PRN PRN Reason: Nausea and Vomiting Morphine Sulfate (Morphine Sulfate 2 Mg/Ml Cartridge) 2 mg IVPUSH Q2H PRN; Protocol PRN Reason: severe pain Last Admin: 11/19/21 00:10 Dose: 2 mg Documented by: TIM Ondansetron HCl (Ondansetron Hcl 4 Mg/2 Ml Vial) 4 mg IVPUSH ONCE PRN PRN Reason: Nausea and Vomiting Oxybutynin Chloride (Oxybutynin Chloride Er 5 Mg Tab.Er.24) 5 mg PO BEDTIME [facility] Last Admin: 11/18/21 19:21 Dose: 5 mg Documented by: TALIA Oxycodone HCl (Oxycodone Hcl Immed Release 5 Mg Tablet) 5 mg PO Q4H PRN PRN Reason: moderate pain Last Admin: 11/19/21 04:40 Dose: 5 mg Documented by: TIM Pharmacy Consult (Consult Rx Perform Med Rec) 1 each MISCELLANE ONCE PRN PRN Reason: Consult order Phenazopyridine HCl (Phenazopyridine Hcl 100 Mg Tablet) 100 mg PO TID PRN PRN Reason: Muscle Spasm Last Admin: 11/19/21 06:01 Dose: 100 mg Documented by: TIM Sodium Chloride (0.9 % Sodium Chloride Flush 3 Ml Syringe) 3 ml IVFLUSH QSHIFT [facility] Last Admin: 11/19/21 07:51 Dose: 3 ml Documented by: LUIS Tramadol HCl (Tramadol Hcl 50 Mg Tablet) 50 mg PO Q6H PRN PRN Reason: Pain, Moderate (Pain Scale 4-6 Labs CBC & Chem 7: 11/19/21 05:58 11/19/21 05:58 Labs: Laboratory Results - last 24 hr 11/19/21 11/19/21 05:58 05:58 MCV 83.4 MCH 26.3 L MCHC 31.6 RDW 13.7 Plt Count 313 MPV 11.3 Absolute Nucleated RBC 0.000 Nucleated RBC % (auto) 0.0 Anion Gap 14 Estim Creat Clear Calc 90.3 Estimated GFR > 60 Random Glucose 127 H Calcium 9.2 D C-Reactive Protein 11.03 H Microbiology Microbiology Results: Microbiology 11/13/21 12:52 Blood Culture - Final Blood - Venous No growth after 5 days. 11/13/21 12:48 Blood Culture - Final Blood - Venous No growth after 5 days. Assessment and Plan (1) Urinary tract obstruction due to kidney stone: Status: Acute Plan hospital d#7 26yo F p/w 3d of R flank pain with N/V, admittted with severe R hydronephrosis from 5x7mm proximal ureteral stone with perinephric fluid/stranding # R hydronephrosis secondary to proximal ureteral stone # POD#5 stenting but with persistent pain + leukocytosis; repeat US pending; to OR today for repeat urologic intervention # POD #1 stent removal/dilation of ureteric orifice/laser lithotripsy/stone basketing - on pip/chase d#7, UCx contaminated, switch to levofloxacin # VTE ppx - SCDs In my clinical judgment, the patient requires continued hospitalization for the following reasons: postop, leukocytosis Quality Stroke Does the patient have a stroke diagnosis?: No VTE Prior VTE?: No VTE Risk Level:: Medical - moderate - high VTE Device Contraindication: N/A - Device Ordered VTE Drug Contraindication: Treatment Not Indicated
--- NOTE | 2021-11-19 12:11 | MHC.CM.PN ---
nurse registered nurse hh case manager note electronic medical record reviewed and case discussed with the hospitlaist , met with patient shr reported she is feeling much much better and anticipates d/c 1-2 days as they changed her abx. per hospitalist documentation ( R flank pain with N/V, admittted with urinary tract infection with kidney stone severe R hydronephrosis from 5x7mm proximal ureteral stone with perinephric fluid/stranding # R hydronephrosis secondary to proximal ureteral stone # POD#5 stenting but with persistent pain + leukocytosis; repeat US pending; to OR today for repeat urologic intervention # POD #1 stent removal/dilation of ureteric orifice/laser lithotripsy/stone basketing - on pip/chase d#7, UCx contaminated, switch to levofloxacin) iv abx changed on 11/19/21 and willremain hospitlaised secondary to elvated wbc post surgery discharge plan home 1-2 days anticipated on oral abx , she does not feel nor want vna at this time pcp patient to follow mupwith her pcp and urologist per discharge instructions transportation patient [place] try to arrange a ride home but may need transportation help
[2021-11-19] MEDS: levoFLOXacin/D5W 500 MG/100 ML PIGGYBACK 100 MG IV (13:08)
--- NOTE | 2021-11-19 14:42 | HO.POSTANES ---
Post Anesthesia Evaluation Post Anesthesia Evaluation Vital Signs: Vital Signs Temp Pulse Resp BP Pulse Ox 11/19/21 07:37 97.7 F 65 18 110/68 95 11/19/21 04:44 97.4 F Anesthesia: General Mental Status: Awake Pain Control: Satisfactory Nausea/Vomiting: Mild Hydration: Adequate Anesthesia-Related Issues: No Anes. Related Issues
[2021-11-19 16:00] VITALS: BP 101/59; PULSE 77; RESP 18; TEMP 36.2; O2SAT 97
[2021-11-19] MEDS: diphenhydrAMINE HCL 25 MG TABLET PO (23:26)
[2021-11-19 23:50] VITALS: BP 106/56; PULSE 68; RESP 18; TEMP 36.4; O2SAT 97
[2021-11-20] MEDS: oxyCODONE HCl Immed Release 5 MG TABLET PO ×5 (00:53→22:56)
[2021-11-20 06:06] LABS: Hematocrit 34.1 % (37.0-47.0); Hemoglobin 10.9 g/dl (12.0-16.0); Mean Corpuscular Hemoglobin 26.3 pg (27.0-33.0); Mean Corpuscular Volume 82.2 fL (80.0-98.0); Mean Platelet Volume 10.8 fL (9.4-12.3); Platelet Count 348 X10*3/uL (160-400); Red Blood Count 4.15 X10*6/uL (4.20-5.50); Red Cell Distribution Width 14.1 % (11.0-16.0)
[2021-11-20 06:20] LABS: Anion Gap 14 (12-20); Blood Urea Nitrogen 16 mg/dL (9-16); C Reactive Protein 5.83 mg/dL (< or = 0.50); Calcium 8.9 mg/dL (8.4-10.2); Carbon Dioxide 26 mmol/L (22-29); Chloride 104 mmol/L (96-108); Creatinine Clr Calc Pharmacy 83.5; Estimated Glomerular Filt Rate > 60; Glucose Random 108 mg/dL (60-115); Potassium 3.8 mmol/L (3.3-5.1); Sodium 140 mmol/L (135-145)
[2021-11-20 08:00] VITALS: BP 106/54; PULSE 66; RESP 18; TEMP 36.1; O2SAT 97
[2021-11-20] MEDS: Phenazopyridine HCL 100 MG TABLET PO ×2 (08:30→17:03)
[2021-11-20] MEDS: 0.9 % Sodium Chloride Flush 3 ML SYRINGE IVFLUSH ×3 (08:31→22:58)
--- NOTE | 2021-11-20 09:50 | P.PNIM_ITS ---
Subjective Subjective Date of Service: 11/20/21 Interval History: Still c/o severe flank pain and dysuria though improved from yesterday. Requiring IV morphine. No fever. Poor appetite Review of Systems Review of Systems: Yes all other systems are reviewed and are negative Physical Exam Vital Signs: Vital Signs: Last Vital Signs Temp 96.9 F 11/20/21 08:00 Pulse 66 11/20/21 08:00 Resp 18 11/20/21 08:00 BP 106/54 L 11/20/21 08:00 Pulse Ox 97 11/20/21 08:00 BMI result Body Mass Index 31.6 Gen: in no acute distress HEENT: sclera anicteric, moist mucus membranes Neck: supple Lungs: clear to auscultation bilaterally Heart: regular rate and rhythm, no murmurs Abd: soft, non-tender, non-distended : R CVAT Ext: no edema Skin: warm/well-perfused Neuro: alert and oriented x3, no focal findings Psych: appropriate affect Objective Data Active Medications Acetaminophen (Acetaminophen 325 Mg Tablet) 650 mg PO Q6H PRN PRN Reason: Pain, Mild (Pain Scale 1-3) Last Admin: 11/16/21 16:31 Dose: 650 mg Documented by: DAGO Fentanyl (Fentanyl Citrate/Pf 100 Mcg/2 Ml Vial) 25 mcg IVPUSH Q5M PRN; Protocol PRN Reason: Pain, Moderate (Pain Scale 4-6 Promethazine HCl 6.25 mg/ (Sodium Chloride) 50.25 mls @ 201 mls/hr IV ONCE PRN PRN Reason: Nausea and Vomiting Levofloxacin (Levaquin) 500 mg in 100 mls @ 100 mls/hr IV Q24H [facility] Last Infusion: 11/19/21 14:14 Dose: 0 mls/hr Documented by: LUIS Morphine Sulfate (Morphine Sulfate 2 Mg/Ml Cartridge) 2 mg IVPUSH Q2H PRN; Protocol PRN Reason: severe pain Last Admin: 11/19/21 23:35 Dose: 2 mg Documented by: Ondansetron HCl (Ondansetron Hcl 4 Mg/2 Ml Vial) 4 mg IVPUSH ONCE PRN PRN Reason: Nausea and Vomiting Oxybutynin Chloride (Oxybutynin Chloride Er 5 Mg Tab.Er.24) 5 mg PO BEDTIME [facility] Last Admin: 11/19/21 20:43 Dose: 5 mg Documented by: OLIVIA Oxycodone HCl (Oxycodone Hcl Immed Release 5 Mg Tablet) 5 mg PO Q4H PRN PRN Reason: moderate pain Last Admin: 11/20/21 08:31 Dose: 5 mg Documented by: SAMI Pharmacy Consult (Consult Rx Perform Med Rec) 1 each MISCELLANE ONCE PRN PRN Reason: Consult order Phenazopyridine HCl (Phenazopyridine Hcl 100 Mg Tablet) 100 mg PO TID PRN PRN Reason: Muscle Spasm Last Admin: 11/20/21 08:30 Dose: 100 mg Documented by: SAMI Sodium Chloride (0.9 % Sodium Chloride Flush 3 Ml Syringe) 3 ml IVFLUSH QSHIFT [facility] Last Admin: 11/20/21 08:31 Dose: 3 ml Documented by: SAMI Tramadol HCl (Tramadol Hcl 50 Mg Tablet) 50 mg PO Q6H PRN PRN Reason: Pain, Moderate (Pain Scale 4-6 Labs CBC & Chem 7: 11/20/21 05:19 11/20/21 05:19 Labs: Laboratory Results - last 24 hr 11/20/21 11/20/21 05:19 05:19 MCV 82.2 MCH 26.3 L MCHC 32.0 RDW 14.1 Plt Count 348 MPV 10.8 Absolute Nucleated RBC 0.000 Nucleated RBC % (auto) 0.0 Anion Gap 14 Estim Creat Clear Calc 83.5 Estimated GFR > 60 Random Glucose 108 Calcium 8.9 C-Reactive Protein 5.83 H Assessment and Plan (1) Urinary tract obstruction due to kidney stone: Status: Acute Plan hospital d#8 26yo F p/w 3d of R flank pain with N/V, admittted with severe R hydronephrosis from 5x7mm proximal ureteral stone with perinephric fluid/stranding # R hydronephrosis secondary to proximal ureteral stone # POD#6 stenting, failed to pass stone # POD#2 stent removal/dilation of ureteric orifice/laser lithotripsy/stone basketing - s/p 7d of pip/chase, UCx contaminated, on d#2 of levofloxacin # VTE ppx - SCDs In my clinical judgment, the patient requires continued hospitalization for the following reasons: postop, leukocytosis, IV analgesia Quality Stroke Does the patient have a stroke diagnosis?: No VTE Prior VTE?: No VTE Risk Level:: Medical - moderate - high VTE Device Contraindication: N/A - Device Ordered VTE Drug Contraindication: Treatment Not Indicated
[2021-11-20] MEDS: levoFLOXacin/D5W 500 MG/100 ML PIGGYBACK 100 MG IV (12:13)
[2021-11-20 15:21] VITALS: BP 98/57; PULSE 72; RESP 18; TEMP 36.7; O2SAT 94
[2021-11-20 16:08] VITALS: O2SAT 94
[2021-11-20] MEDS: Morphine Sulfate 2 MG/ML CARTRIDGE IVPUSH (19:30)
[2021-11-20 23:41] VITALS: BP 103/57; PULSE 68; RESP 18; TEMP 36.4; O2SAT 97
[2021-11-21] MEDS: Phenazopyridine HCL 100 MG TABLET PO ×2 (00:04→10:59)
[2021-11-21] MEDS: Morphine Sulfate 2 MG/ML CARTRIDGE IVPUSH (00:53)
[2021-11-21] MEDS: diphenhydrAMINE HCL 25 MG TABLET PO (01:21)
[2021-11-21] MEDS: oxyCODONE HCl Immed Release 5 MG TABLET PO ×2 (03:31→10:59)
[2021-11-21 06:15] LABS: Hematocrit 35.8 % (37.0-47.0); Hemoglobin 11.1 g/dl (12.0-16.0); Mean Corpuscular Hemoglobin 26.1 pg (27.0-33.0); Platelet Count 370 X10*3/uL (160-400); Red Blood Count 4.26 X10*6/uL (4.20-5.50); Red Cell Distribution Width 14.1 % (11.0-16.0); White Blood Count 11.8 X10*3/uL (4.8-10.8)
[2021-11-21 06:46] LABS: C Reactive Protein 3.77 mg/dL (< or = 0.50)
[2021-11-21 08:00] VITALS: BP 102/59; PULSE 71; RESP 18; TEMP 36.4; O2SAT 94
--- NOTE | 2021-11-21 09:59 | PM.DS ---
DS: Providers Provider Date of Service: 11/21/21 Date of admission: 11/13/21 13:34 Date of discharge: 11/21/21 Primary care physician: None Physician Consults: 11/13/21 13:36 Consult to Urology Routine Consulting Provider: Leonardo Adair III Reason for consultation: right hydronephrosis Has provider been notified: No 11/16/21 11:36 Consult to Urology Routine Consulting Provider: Ramy Krueger Reason for consultation: worsening pain post stenting Has provider been notified: No DS: Diagnosis Discharge Diagnosis (1) Urinary tract obstruction due to kidney stone: Status: Acute (2) Pyelonephritis: Status: Acute DS: Summary Hospital Course Hospital Course: from admission H+P by hospitalist Bob Palomares DO, 11/13/21: 26-year-old female presents with what she describes as 3 days of intermittent worsening right flank pain.? She states initially the pain was intermittent and sharp but has continued to get worse over the last 3 days.? She states yesterday afternoon last night the pain was accompanied by waves of nausea and vomiting.? She subjectively complains of chills. This 26 year-old woman presented with 3 days of R flank pain with nausea and vomiting. She was admitted with severe R hydronephrosis from a 5x7mm proximal ureteral stone with perinephric fluid/stranding concerning for pyelonephritis. Urology was consulted. She underwent stenting but with failure to retrieve the stone on 11/14/21. She had persistent pain. Urology was re-consulted. On 11/19/21, she underwent removal of the stent, dilation of the ureteric office, and laser lithotripsy with stone basketing. Urine culture was contaminated. Leukocytosis improved and symptoms resolved. She was treated with 7 days of piperacillin/tazobactam and 2 day of levofloxacin; she will complete treatment with 3 more days of levofloxacin. She will need a primary care doctor as well as urology follow-up. Time Spent with Patient Time attestation: Total time spent providing and/or coordinating discharge services: 35 Discharge coordination time: Greater than 30 minutes Quality: Safe Use of Opioids Does Pt have an Active Cancer Diagnosis on the Problem List?: No Quality: Stroke Does the patient have a stroke diagnosis?: No Physical Exam Vital Signs: Vital Signs: Last Vital Signs Temp 97.5 F 11/21/21 08:00 Pulse 71 11/21/21 08:00 Resp 18 11/21/21 08:00 BP 102/59 L 11/21/21 08:00 Pulse Ox 94 11/21/21 08:00 BMI result Body Mass Index 31.6 Gen: in no acute distress HEENT: sclera anicteric, moist mucus membranes Neck: supple Lungs: clear to auscultation bilaterally Heart: regular rate and rhythm, no murmurs Abd: soft, non-tender, non-distended Ext: no edema Skin: warm/well-perfused Neuro: alert and oriented x3, no focal findings Psych: appropriate affect DS: Data Data Completed and Pending Completed studies during hospitalization [Text1]: Laboratory Results WBC 11.8 X10*3/uL (4.8-10.8) H 11/21/21 05:19 RBC 4.26 X10*6/uL (4.20-5.50) 11/21/21 05:19 Hgb 11.1 g/dl (12.0-16.0) L 11/21/21 05:19 Hct 35.8 % (37.0-47.0) L 11/21/21 05:19 MCV 84.0 fL (80.0-98.0) 11/21/21 05:19 MCH 26.1 pg (27.0-33.0) L 11/21/21 05:19 MCHC 31.0 g/dl (31.0-35.0) 11/21/21 05:19 RDW 14.1 % (11.0-16.0) 11/21/21 05:19 Plt Count 370 X10*3/uL (160-400) 11/21/21 05:19 MPV 11.0 fL (9.4-12.3) 11/21/21 05:19 Immature Gran % (Auto) 2.8 % (0.0-0.4) H 11/17/21 05:21 Neut % (Auto) 65.2 % (45-73) 11/17/21 05:21 Lymph % (Auto) 23.1 % (20-40) 11/17/21 05:21 Trigg % (Auto) 7.7 % (2-11) 11/17/21 05:21 Eos % (Auto) 1.0 % (0-4) 11/17/21 05:21 Baso % (Auto) 0.2 % (0-2) 11/17/21 05:21 Lymph # (Auto) 3.4 X10*3/uL (1.2-4.9) 11/17/21 05:21 Trigg # (Auto) 1.1 X10*3/uL (0.1-1.2) 11/17/21 05:21 Eos # (Auto) 0.1 X10*3/uL (0.0-0.4) 11/17/21 05:21 Baso # (Auto) 0.0 X10*3/uL (0.0-0.2) 11/17/21 05:21 Abs Immat Gran (auto) 0.41 X10*3/uL (0.00-0.03) H 11/17/21 05:21 Absolute Neuts (auto) 9.6 x10*3/uL (2.0-8.3) H 11/17/21 05:21 Absolute Nucleated RBC 0.000 X10*3/uL (0.0-0.012) 11/21/21 05:19 Nucleated RBC % (auto) 0.0 /100WBC (0.0-0.2) 11/21/21 05:19 Smear Tech's Comments VERIFIED 11/13/21 09:50 Sodium 140 mmol/L (135-145) 11/20/21 05:19 Potassium 3.8 mmol/L (3.3-5.1) 11/20/21 05:19 Chloride 104 mmol/L (96-108) 11/20/21 05:19 Carbon Dioxide 26 mmol/L (22-29) 11/20/21 05:19 Anion Gap 14 (12-20) 11/20/21 05:19 BUN 16 mg/dL (9-16) 11/20/21 05:19 Creatinine 0.80 mg/dL (0.5-1.4) 11/20/21 05:19 Estim Creat Clear Calc 83.5 11/20/21 05:19 Estimated GFR > 60 11/20/21 05:19 Random Glucose 108 mg/dL (60-115) 11/20/21 05:19 Fasting Glucose 95 mg/dL (60-99) 11/17/21 05:21 Lactic Acid 1.2 mmol/L (0.5-2.0) 11/13/21 12:48 Calcium 8.9 mg/dL (8.4-10.2) 11/20/21 05:19 Total Bilirubin 0.6 mg/dL (0.0-1.0) 11/17/21 05:21 AST 21 U/L (5-31) D 11/17/21 05:21 ALT 24 U/L (0-31) 11/17/21 05:21 Alkaline Phosphatase 53 U/L (39-117) 11/17/21 05:21 Troponin I High Sens < 3.5 ng/L (<3.5-17.0) 11/13/21 09:50 C-Reactive Protein 3.77 mg/dL (< or = 0.50) H 11/21/21 05:19 Total Protein 5.8 g/dL (6.5-8.0) L 11/17/21 05:21 Albumin 3.2 g/dL (3.5-5.0) L 11/17/21 05:21 Lipase 7 U/L (8-78) L 11/13/21 09:50 Random Cortisol Cancelled 11/17/21 05:21 Urine Color YELLOW 11/13/21 09:10 Urine Appearance HAZY 11/13/21 09:10 Urine pH 6.0 (5.0-8.0) 11/13/21 09:10 Ur Specific [place] >= 1.030 (1.005-1.025) H 11/13/21 09:10 Urine Protein 2+ MG/DL (NEG-TRACE) H 11/13/21 09:10 Urine Glucose (UA) NEG MG/DL (NEG) 11/13/21 09:10 Urine Ketones 40 MG/DL (NEG) 11/13/21 09:10 Urine Blood 3+ (NEG) H 11/13/21 09:10 Urine Nitrite NEG (NEG) 11/13/21 09:10 Ur Leukocyte Esterase 1+ (NEG) H 11/13/21 09:10 Urine RBC 5-9 /HPF (0) H 11/13/21 09:10 Urine WBC 15-29 /HPF (0-4) H 11/13/21 09:10 Ur Squamous Epith Cells 3+ /LPF 11/13/21 09:10 Urine Bacteria 2+ /LPF 11/13/21 09:10 Urine Mucus 3+ /LPF 11/13/21 09:10 Urine Test NEGATIVE (NEGATIVE) 11/13/21 09:10 COVID-19 (JESUS) Negative (Negative) 11/13/21 09:50 COVID-19 Clin Com See Note 11/13/21 09:50 Impressions Chest X-Ray 11/13/21 10:35 IMPRESSION: Unremarkable examination. Abdomen/Pelvis CT 11/13/21 11:34 IMPRESSION: Severe right hydronephrosis from a 5 x 7 mm right proximal ureteral stone. Significant right perinephric fluid and fluid along the right posterior pararenal fascia. This may be secondary to obstruction and backflow of urine. Differential would include infection. Clinical correlation recommended. 5 mm left lower pole renal stone. Small right pleural effusion. Fleischner guidelines were followed. Guidance Fluoroscopy 11/14/21 09:11 IMPRESSION: As above. Renal Ultrasound 11/17/21 12:15 IMPRESSION: Resolution of right upper collecting system marked hydronephrosis. Appearance of complex cyst upper pole of the right kidney. 9 mm left renal calculus which is nonobstructive. Pending studies at discharge: Pending at discharge 11/18/21 17:37 Surgical [PTH] Routine Discharge Plan Discharge Patient Disposition: Home, Self-Care Discharge Diagnosis: pyelonephritis, kidney stone Referrals: [facility] [place] [facility] [Provider Group] - 1 Week Ramy Krueger MD [Physician] - 2 Weeks PhysicianDeya [Primary Care Provider] - 1 Week Discharge Medications: New phenazopyridine 100 mg Tablet 100 mg PO TID PRN (Reason: Muscle Spasm) Qty: 6 0RF oxycodone 5 mg Tablet 5 mg PO Q8H PRN (Reason: moderate pain) Qty: 9 0RF levofloxacin 500 mg tablet 500 mg PO DAILY Qty: 3 0RF Discharge Orders: Discharge Order (Routine); Ordered 11/21/21 Ordered By: Richar Dubon Diet: advance to usual diet Activity on Discharge: As tolerated Stand Alone Forms: Patient Portal Discharge page Care Plan Goals: recovery from kidney stone + infection Health Concerns: pyelonephritis, kidney stone Plan of Treatment: levofloxacin 500 mg daily x 3 days pain control- Tylenol for mild/moderate pain, oxycodone for severe pain phenazopyridine for urinary burning drink plenty of fluids establish primary care and follow up in 1-2 weeks see urology in 2 weeks Assessment: See Discharge Summary Patient Instructions: Kidney Stones (DC), Kidney Infection (DC)
[2021-11-21] MEDS: 0.9 % Sodium Chloride Flush 3 ML SYRINGE IVFLUSH (10:59)
--- NOTE | 2021-11-21 12:44 | MHC.CM.PN ---
Addendum entered by Alexsandra Sanchez RN 11/21/21 13:57: PT REQUESTING SCRIPTS BE RESENT TO [facility] NEAR HER HOME IN [place], [facility] ADDED TO EXPANSE PREFFERED PHARMACY AND REQUEST HAS BEEN SENT TO [facility]PITAL[facility]IA [facility]. Original Note: PT MEDICALLY CLEARED FOR D/C HOME SELF CARE, PT HAS ARRANGED HER OWN TRANSPORTATION
[2021-11-23 23:31] LABS: Stone Source RIGHT RENAL STONE
== END 2021-11-21 14:30 | disposition home or self-care (01) | DRG 446 ==
LOC: HO.ED 12:43 → HO.EDOVER 13:48 → HO.S3 15:45
PROVIDERS: Physician Assistant; Urology; Admitting Provider Hospitalist; Emergency Provider Emergency Medicine; Visit Provider Family Medicine
PROC: 0T768DZ Dilation of Right Ureter with Intraluminal Device, Via Natural or Artificial Opening Endoscopic (ICD-10-PCS; principal; 2021-11-14 08:00)
PROC: 0TC68ZZ Extirpation of Matter from Right Ureter, Via Natural or Artificial Opening Endoscopic (ICD-10-PCS; principal; 2021-11-18 17:30)
DX: N13.6 Pyonephrosis (principal); E66.9 Obesity, unspecified; Z20.822 Contact with and (suspected) exposure to COVID-19; Z68.31 Body mass index [BMI] 31.0-31.9, adult
CPT/HCPCS: 36415; 71046; 74177; 76775; 80048; 80053; 81001; 81025; 82365; 83605; 83690; 84484; 85025; 85027; 86140; 87040; 87086; 87635; 88300; 93005; 96361; 96374; 96375; 99285; C1758; C1769; C1894; C2617; J0696; J1100; J1580; J1885; J1956; J2250; J2270; J2370; J2405; J2543; J3010; Q0163; Q9967